=== PATIENT | female | born 1935 | race Caucasian/White ===

== ENCOUNTER 2022-03-30 12:10 | Inpatient (IN) | payer MEDICARE, OTHER, SELFPAY ==
[2022-03-30] VITALS (8 sets, daily range): BP systolic 120–149; BP diastolic 66–89; PULSE 77–155; RESP 17–22; TEMP 36.3–36.6; O2SAT 93–98; BMI 24.0
--- NOTE | ~2022-03-30 | CT_ITS ---
EXAMINATION: CT CHEST WITHOUT CONTRAST CLINICAL INFORMATION: Shortness of breath. Follow-up abnormal chest x-ray. COMPARISON: Previous chest x-ray from earlier the same day TECHNIQUE: Multidetector volumetric CT imaging of the chest was done. Axial MIP volume rendering provided. Sagittal and coronal reformatted images were obtained. This CT examination was performed using dose optimization techniques as appropriate, variously including the following: *Automated exposure control *Adjustment of mA and/or kV according to patient size (this includes techniques or standardized protocols for targeted exams where dose is matched to indication/reason for exam; i.e. extremities or head) *Use of iterative reconstruction technique DLP: 178 mGy-cm FINDINGS: LUNGS: There is a 3 mm peripheral or subpleural left upper lobe nodule axial image 102 series 5. There is an accessory fissure the superior segment of the right lower lobe from basal segments. There are several clustered nodules in the superior segment of the right lower lobe largest measuring 6 mm and 10 mm axial image 219 and 228 series 5. There is atelectasis or small infiltrate filled trachea in the anterior basal segment of the left lower lobe. There is subsegmental atelectasis in the right lower lobe adjacent to the effusion. There is mild biapical pleural and parenchymal scarring. No evidence of emphysema. MEDIASTINUM: Slightly enlarged heart. No pericardial effusion. Mild coronary artery and aortic valve calcification. Small mediastinal lymph nodes. No enlarged hilar or mediastinal lymph nodes. Small calcifications in the right lobe of the thyroid gland. CORONARY ARTERY CALCIFICATION: Mild PLEURA: Large right pleural effusion and small left pleural effusion. AXILLA: Small bilateral axillary lymph nodes. No chest wall mass or enlarged axillary lymph nodes. UPPER ABDOMEN: Unremarkable. OSSEOUS STRUCTURES: Degenerative changes of the spine. CT/CT chest wo IV con IMPRESSION: Accessory right pleural fissure the superior segment of the right lower lobe from the basal segments. Several clustered superior segment right lower lobe nodules largest measuring 7 and 10 mm. Atelectasis or small infiltrate in the anterior basal segment of the left lower lobe. Infectious or inflammatory processes should be considered. Short-term follow-up chest CT in several months following antibiotic treatment recommended. Subsegmental atelectasis in the right lower lobe adjacent to the pleural effusion. Large right and small left pleural effusions. Enlarged heart. Fleischner guidelines were followed.
--- NOTE | ~2022-03-30 | XR_ITS ---
EXAMINATION: XR CHEST CLINICAL INFORMATION: Shortness of breath COMPARISON: None TECHNIQUE: Frontal view of the chest was obtained. FINDINGS: Small bibasilar pleural effusions noted. Minor atelectasis at the left base. I would recommend a follow-up PA lateral. There is a very minor streaky infiltrate in the right perihilar lung as well. Heart and pulmonary vessels normal. XR/XR chest 1V IMPRESSION: Bilateral infiltrates and small effusions. This could reflect pneumonia. Recommend follow-up when clinically feasible a PA and lateral film.
--- NOTE | 2022-03-30 12:40 | ECG_ITS ---
Test Reason : DYSPNEA Blood Pressure : / mmHG Vent. Rate : 148 BPM Atrial Rate : 000 BPM P-R Int : 000 ms QRS Dur : 078 ms QT Int : 322 ms P-R-T Axes : 000 074 060 degrees QTc Int : 505 ms Atrial fibrillation with rapid ventricular response Nonspecific T wave abnormality Abnormal ECG No previous ECGs available Referred By: Alysa Giron Electronically Signed By:HOLDEN ORTEGA MD
[2022-03-30 13:52] LABS: MANUAL DIFF FLAG NO
[2022-03-30 13:57] LABS: Basophils Absolute Auto 0.1 X10*3/uL (0.0-0.2); Basophils Percent Auto 0.9 % (0-2); Eosinophils Absolute Auto 0.1 X10*3/uL (0.0-0.4); Eosinophils Percent Auto 1.9 % (0-4); Hematocrit 43.8 % (37.0-47.0); Hemoglobin 14.4 g/dl (12.0-16.0); Imm Gran Abs Auto 0.02 X10*3/uL (0.00-0.03); Imm Gran Pct Auto 0.3 % (0.0-0.4); Lymphocytes Absolute Auto 1.3 X10*3/uL (1.2-4.9); Lymphocytes Percent Auto 18.8 % (20-40); Mean Corpuscular HGB Conc 32.9 g/dl (31.0-35.0); Mean Corpuscular Hemoglobin 29.1 pg (27.0-33.0); Mean Corpuscular Volume 88.7 fL (80.0-98.0); Mean Platelet Volume 9.2 fL (9.4-12.3); Monocytes Absolute Auto 0.6 X10*3/uL (0.1-1.2); Monocytes Percent Auto 8.8 % (2-11); Neutrophils Absolute Auto 4.8 x10*3/uL (2.0-8.3); Neutrophils Percent Auto 69.3 % (45-73); Platelet Count 294 X10*3/uL (160-400); Red Blood Count 4.94 X10*6/uL (4.20-5.50); Red Cell Distribution Width 13.2 % (11.0-16.0); White Blood Count 6.9 X10*3/uL (4.8-10.8)
[2022-03-30] MEDS: dilTIAZem HCL 50 MG/10 ML VIAL 20 MG IVPUSH (13:58)
--- NOTE | 2022-03-30 14:02 | ED_ITS ---
HPI - General Adult General Chief complaint: Dyspnea Stated complaint: SOB Time Seen by Provider: 03/30/22 13:30 Source: patient and family (Sister) Mode of arrival: ambulatory Limitations: no limitations History of Present Illness HPI narrative: 86-year-old female came in for evaluation of generalized weakness and shortness of breath. Patient lives home with her mostly independently and functional for the past 2 weeks patient notice having difficulty breathing and exertional dyspnea, patient also started to notice that she cannot lay flat on her back and nighttime because she developed SOB, symptoms started 2 weeks ago started with lower abdominal pain ascending up to the epigastric area that lasted for 1 day now patient has no abdominal pain or chest pain. Patient declined any history of atrial fibrillation. Patient stated that she was at her normal health state until 2 weeks ago when her broke her hip and she has to take care of him. Related Data Home Medications Medication Instructions Recorded Confirmed amitriptyline 10 mg tablet 1 tab PO BEDTIME 03/30/22 03/30/22 escitalopram oxalate 10 mg tablet 1 tab PO BEDTIME 03/30/22 03/30/22 rizatriptan 10 mg tablet 1 tab PO DAILY MRX1 PRN Migraine 03/30/22 03/30/22 Headache topiramate 25 mg tablet 4 tab PO BEDTIME 03/30/22 03/30/22 Allergies Allergy/AdvReac Type Severity Reaction Status Date / Time No Known Allergies Allergy Verified 03/30/22 13:37 Review of Systems 2 Review of Systems: All other systems are reviewed and are negative Constitutional: Reports as per HPI and Reports no additional constitutional complaints Eyes: Reports as per HPI and Reports no additional eye complaints Reports system reviewed and no additional complaints, except as documented Cardiovascular: Reports as per HPI and Reports no additional cardiovascular complaints Respiratory: Reports as per HPI and Reports no additional respiratory complaints Gastrointestinal: Reports as per HPI and Reports no additional gastrointestinal complaints Genitourinary: Reports no additional female genitourinary complaints Musculoskeletal: Reports no additional musculoskeletal complaints Skin/Breast: Reports system reviewed and no additional complaints, except as docu Psychiatric: Reports no additional psychiatric complaints Endocrine: Reports no additional endocrine complaints Hematologic/Lymphatic: Reports no additional hematologic/lymphatic complaints Allergic/Immunologic: Reports no additional allergic/immunologic complaints Reports system reviewed and no additional complaints, except as documented and Reports Abnormal speech present. [facility] Social History Social History Patient Tobacco Use Status: Never used Tobacco Use of substances other than those prescribed or required for medical reasons: No Advance Directives: Yes Advance Directives Information Provided: No Advance Directives on File: No Physical Exam ED Vital Signs: Vital Signs - 24 hr 03/30/22 12:34 03/30/22 14:09 03/30/22 14:31 Temperature 97.8 F Pulse Rate 155 H 83 77 Respiratory Rate 22 H 18 18 Blood Pressure 132/89 120/66 130/81 Pulse Oximetry 97 Oxygen Delivery Method Room Air 03/30/22 14:43 03/30/22 16:39 Temperature Pulse Rate 79 95 Respiratory Rate 18 18 Blood Pressure 145/76 H 132/73 Pulse Oximetry 95 98 Oxygen Delivery Method Room Air Room Air BMI result Body Mass Index 24.0 Vital signs have been reviewed as appeared to be correct. Blood pressure normal. Heart rate rapid. Respiration rate normal. Temperature normal. Oxygen saturation normal. Appearance: Alert. Oriented X3. No acute distress. Head: Normal external exam. Normocephalic. Atraumatic. No Gaytan signs noted. No raccoon eyes noted Eyes: PERRLA. EOMI. Conjunctiva and sclera normal. Eyelids normal. ENT: TM's Normal. Pharynx normal. Uvula midline. Moist mucous membranes. No trismus noted. No drooling noted. No muffled voice noted. Neck: Normal inspection. Neck supple. FROM. No adenopathy. Thyroid Normal. No meningeal signs. No neck mass noted. CVS: Normal heart rate and rhythm. Heart sound normal. No murmurs noted. Pulses normal throughout. Respiratory: No respiratory distress. Painless inspiration. Breath sounds normal. No wheezes/rales/rhonchi noted. Chest nontender. No accessory muscle usage noted or decreased air movement noted. Abdomen: Soft and nontender. Bowel sounds normal in all 4 quadrants. No distention noted. No organomegaly noted. No visible injury noted. Back: No CVA tenderness. Full range of motion noted. Skin: Skin warm and dry. Normal skin color. Normal skin turgor. No rashes/lesions/lacerations noted. Extremities: No lower extremity edema. Extremities exhibit normal range of motion. Extremities nontender. Neuro: Oriented X 3. Cranial nerve exam: II-XII are grossly intact No motor deficit. No sensory deficit. Reflexes normal. Course Course Course Narrative: 86-year-old female came in for generalized weakness and SOB patient found to be an new rapid atrial fibrillation that has been controlled with Cardizem drip. Patient will require anticoagulation will start the patient on Eliquis 5 mg p.o. and admit. Medical Decision Making Medical Records Medical records reviewed: Yes I reviewed the patient's medical records. Lab Data Lab results reviewed: Yes I reviewed the patient's lab results. Result diagrams: 03/30/22 13:49 03/30/22 13:49 Labs: Lab Results 03/30/22 03/30/22 03/30/22 Range/Units 13:49 13:49 13:49 WBC 6.9 (4.8-10.8) X10*3/uL RBC 4.94 (4.20-5.50) X10*6/uL Hgb 14.4 (12.0-16.0) g/dl Hct 43.8 (37.0-47.0) % MCV 88.7 (80.0-98.0) fL MCH 29.1 (27.0-33.0) pg MCHC 32.9 (31.0-35.0) g/dl RDW 13.2 (11.0-16.0) % Plt Count 294 (160-400) X10*3/uL MPV 9.2 L (9.4-12.3) fL Immature Gran % (Auto) 0.3 (0.0-0.4) % Neut % (Auto) 69.3 (45-73) % Lymph % (Auto) 18.8 L (20-40) % [place] % (Auto) 8.8 (2-11) % Eos % (Auto) 1.9 (0-4) % Baso % (Auto) 0.9 (0-2) % Lymph # (Auto) 1.3 (1.2-4.9) X10*3/uL [place] # (Auto) 0.6 (0.1-1.2) X10*3/uL Eos # (Auto) 0.1 (0.0-0.4) X10*3/uL Baso # (Auto) 0.1 (0.0-0.2) X10*3/uL Abs Immat Gran (auto) 0.02 (0.00-0.03) X10*3/uL Absolute Neuts (auto) 4.8 (2.0-8.3) x10*3/uL Absolute Nucleated RBC 0.000 (0.0-0.012) X10*3/uL Nucleated RBC % (auto) 0.0 (0.0-0.2) /100WBC PT (10.0-13.1) SEC INR (0.9-1.1) Sodium 140 (135-145) mmol/L Potassium 4.9 (3.3-5.1) mmol/L Chloride 108 (96-108) mmol/L Carbon Dioxide 19 L (22-29) mmol/L Anion Gap 18 (12-20) BUN 15 (9-16) mg/dL Creatinine 1.18 (0.5-1.4) mg/dL Estim Creat Clear Calc 33.2 Estimated GFR 44 Random Glucose 94 (60-115) mg/dL Lactic Acid (0.5-2.0) mmol/L Calcium 9.7 (8.4-10.2) mg/dL Magnesium 2.2 (1.6-2.6) mg/dL Troponin I High Sens 27.3 H (<3.5-17.0) ng/L B-Natriuretic Peptide 217 H (<100) pg/mL Procalcitonin ng/mL COVID-19 (IBAN) (Negative) COVID-19 Clin Com 03/30/22 03/30/22 03/30/22 Range/Units 13:49 13:49 13:49 WBC (4.8-10.8) X10*3/uL RBC (4.20-5.50) X10*6/uL Hgb (12.0-16.0) g/dl Hct (37.0-47.0) % MCV (80.0-98.0) fL MCH (27.0-33.0) pg MCHC (31.0-35.0) g/dl RDW (11.0-16.0) % Plt Count (160-400) X10*3/uL MPV (9.4-12.3) fL Immature Gran % (Auto) (0.0-0.4) % Neut % (Auto) (45-73) % Lymph % (Auto) (20-40) % [place] % (Auto) (2-11) % Eos % (Auto) (0-4) % Baso % (Auto) (0-2) % Lymph # (Auto) (1.2-4.9) X10*3/uL [place] # (Auto) (0.1-1.2) X10*3/uL Eos # (Auto) (0.0-0.4) X10*3/uL Baso # (Auto) (0.0-0.2) X10*3/uL Abs Immat Gran (auto) (0.00-0.03) X10*3/uL Absolute Neuts (auto) (2.0-8.3) x10*3/uL Absolute Nucleated RBC (0.0-0.012) X10*3/uL Nucleated RBC % (auto) (0.0-0.2) /100WBC PT 12.2 (10.0-13.1) SEC INR 1.1 (0.9-1.1) Sodium (135-145) mmol/L Potassium (3.3-5.1) mmol/L Chloride (96-108) mmol/L Carbon Dioxide (22-29) mmol/L Anion Gap (12-20) BUN (9-16) mg/dL Creatinine (0.5-1.4) mg/dL Estim Creat Clear Calc Estimated GFR Random Glucose (60-115) mg/dL Lactic Acid (0.5-2.0) mmol/L Calcium (8.4-10.2) mg/dL Magnesium (1.6-2.6) mg/dL Troponin I High Sens (<3.5-17.0) ng/L B-Natriuretic Peptide (<100) pg/mL Procalcitonin 0.04 ng/mL COVID-19 (IBAN) Negative (Negative) COVID-19 Clin Com See Note 03/30/22 Range/Units 14:27 WBC (4.8-10.8) X10*3/uL RBC (4.20-5.50) X10*6/uL Hgb (12.0-16.0) g/dl Hct (37.0-47.0) % MCV (80.0-98.0) fL MCH (27.0-33.0) pg MCHC (31.0-35.0) g/dl RDW (11.0-16.0) % Plt Count (160-400) X10*3/uL MPV (9.4-12.3) fL Immature Gran % (Auto) (0.0-0.4) % Neut % (Auto) (45-73) % Lymph % (Auto) (20-40) % [place] % (Auto) (2-11) % Eos % (Auto) (0-4) % Baso % (Auto) (0-2) % Lymph # (Auto) (1.2-4.9) X10*3/uL [place] # (Auto) (0.1-1.2) X10*3/uL Eos # (Auto) (0.0-0.4) X10*3/uL Baso # (Auto) (0.0-0.2) X10*3/uL Abs Immat Gran (auto) (0.00-0.03) X10*3/uL Absolute Neuts (auto) (2.0-8.3) x10*3/uL Absolute Nucleated RBC (0.0-0.012) X10*3/uL Nucleated RBC % (auto) (0.0-0.2) /100WBC PT (10.0-13.1) SEC INR (0.9-1.1) Sodium (135-145) mmol/L Potassium (3.3-5.1) mmol/L Chloride (96-108) mmol/L Carbon Dioxide (22-29) mmol/L Anion Gap (12-20) BUN (9-16) mg/dL Creatinine (0.5-1.4) mg/dL Estim Creat Clear Calc Estimated GFR Random Glucose (60-115) mg/dL Lactic Acid 1.1 (0.5-2.0) mmol/L Calcium (8.4-10.2) mg/dL Magnesium (1.6-2.6) mg/dL Troponin I High Sens (<3.5-17.0) ng/L B-Natriuretic Peptide (<100) pg/mL Procalcitonin ng/mL COVID-19 (IBAN) (Negative) COVID-19 Clin Com Imaging Data Chest x-ray: Attestation: I personally reviewed and interpreted this imaging study as follows: Radiologist's impression: Bilateral infiltrates and small effusions. This could reflect pneumonia. Recommend follow-up when clinically feasible a PA and lateral film. ? chest CT: Attestation: I personally reviewed and interpreted this imaging study as follows: Radiologist's impression: Accessory right pleural fissure the superior segment of the right lower lobe from the basal segments. Several clustered superior segment right lower lobe nodules largest measuring 7 and 10 mm. Atelectasis or small infiltrate in the anterior basal segment of the left lower lobe. Infectious or inflammatory processes should be considered. Short-term follow-up chest CT in several months following antibiotic treatment recommended. Subsegmental atelectasis in the right lower lobe adjacent to the pleural effusion. Large right and small left pleural effusions. Enlarged heart.? ECG Data Attestation: I personally reviewed and interpreted this ECG as follows: Interpretation: Atrial fibrillation with rapid ventricular response 148, normal axis deviation. No ST-T changes. Critical Care Time Critical Care Time Critical Care Time: Yes Total Critical Care Time: 45 Attestation: I spent 45 minutes providing critical care service to the patient, this including time spent at the bedside to evaluate the patient, reassess the patient, monitoring vital signs, review labs, and radiographic studies, counseling the patient/family, discussing the case with consultants, disposition the patient. Discharge Plan Discharge Clinical Impression: Atrial fibrillation with rapid ventricular response, Community acquired pneumonia, Pulmonary nodule Patient Disposition: Admitted As Inpatient
[2022-03-30] MEDS: dilTIAZem HCL 125 MG in 0.9 % Sodium Chloride 100 ML 10 MG IVCONT (14:05)
[2022-03-30 14:06] LABS: INTERNATIONAL NORM RATIO 1.1 (0.9-1.1); Prothrombin Time 12.2 SEC (10.0-13.1)
--- NOTE | 2022-03-30 14:10 | PC.NURSE ---
gave 20mg of Diltiazem bolus. Patient tolerated it well. heart rate went down to 85. BP 120/66. waiting on instruction from provider to start drip
[2022-03-30 14:11] LABS: COVID-19 Test Negative (Negative); IDNOW Serial# 16C4AD1C
--- NOTE | 2022-03-30 14:14 | ECG_ITS ---
Test Reason : short of breath Blood Pressure : / mmHG Vent. Rate : 114 BPM Atrial Rate : 000 BPM P-R Int : 000 ms QRS Dur : 080 ms QT Int : 380 ms P-R-T Axes : 000 083 085 degrees QTc Int : 523 ms Atrial fibrillation with rapid ventricular response Abnormal ECG When compared with ECG of 30-MAR-2022 13:23, No significant change was found Referred By: Alysa Giron Electronically Signed By:HOLDEN ORTEGA MD
[2022-03-30 14:15] LABS: Anion Gap 18 (12-20); Blood Urea Nitrogen 15 mg/dL (9-16); Calcium 9.7 mg/dL (8.4-10.2); Carbon Dioxide 19 mmol/L (22-29); Chloride 108 mmol/L (96-108); Creatinine Clr Calc Pharmacy 33.2; Estimated Glomerular Filt Rate 44; Glucose Random 94 mg/dL (60-115); Potassium 4.9 mmol/L (3.3-5.1); Sodium 140 mmol/L (135-145)
[2022-03-30 14:21] LABS: B Type Natriuretic Peptide 217 pg/mL (<100); Troponin-I High Sensitivity 27.3 ng/L (<3.5-17.0)
[2022-03-30] MEDS: levoFLOXacin/D5W 750 MG/150 ML PIGGYBACK 100 MG IV (14:35)
[2022-03-30 14:44] LABS: Lactic Acid 1.1 mmol/L (0.5-2.0)
--- NOTE | 2022-03-30 14:54 | PC.NURSE ---
Patient presents to ED with rapid Afib. HR155. sob, cardizem 20 mg given per order pt hr 80-90 b/p WNL. Dr. Sabillon is aware. Cardizem drip started at 5mg/hr. Second IV established and levaquin started. Sat at 95% at room air. She complains of a headache 4/10 and has history of migraines.
--- NOTE | 2022-03-30 15:18 | PHA.MEDREC ---
Pharmacy Consult ? Medication Reconciliation Pharmacy has completed the medication reconciliation.Spoke with patient in the ED. Patient takes all meds at bedtime, except rizatriptan PRN
[2022-03-30] MEDS: Apixaban 5 MG TABLET PO ×2 (15:33→21:47)
[2022-03-30] MEDS: Acetaminophen 325 MG TABLET 650 MG PO (15:34)
[2022-03-30 15:42] LABS: Magnesium 2.2 mg/dL (1.6-2.6)
--- OUTSIDE RECORDS SUMMARY | 2022-03-30 15:46 | XMS_ITS | Continuity of Care Document ---
:1935 Author Organization [facility] Address [address] [place] [id number]- Care Team Providers Name Role Phone Adalberto MURILLO, Eda Primary Care Physician Encounter [facility] Date(s): 09/02/21 - 10/02/21 [facility] [address] [place] [id number] Allergies, Adverse Reactions, Alerts No Known Allergies Immunizations Given and Recorded Vaccine Date Status Refusal Reason influenza virus vaccine, inactivated 07/04/21 Given influenza virus vaccine, inactivated 02/23/20 Recorded influenza virus vaccine, inactivated1 04/10/19 Given SARS-CoV-2 (COVID-19) mRNA-1273 vaccine2 05/19/21 Given SARS-CoV-2 (COVID-19) mRNA-1273 vaccine 09/04/20 Recorded SARS-CoV-2 (COVID-19) mRNA-1273 vaccine 08/07/20 Recorded tetanus/diphtheria/pertussis, acel(Tdap)3 11/08/17 Record ed tetanus/diphtheria/pertussis, acel(Tdap) 09/08/12 Recorde d 1Result Comment: [facility]# [id number] Comment: [facility] [id number] Comment: [facility] amitriptyline 10 mg oral tablet 1 tablet = 10 mg, By Mouth, Daily at bedtime, 0 Refills, Maintenance, 04/27/14 9:25:59 Start Date: 04/27/14 Status: OrderedCaltrate 600 + D See Instructions, 1 tablet By Mouth daily, 0 Refills, Maintenance, 08/03/21 13:51:00 EST, Partial fill upon patient request if the prescription is for a schedule II opioid drug. Start Date: 08/03/21 Status: Orderedescitalopram 10 mg oral tablet 1 tablet = 10 mg, By Mouth, Daily, # 30 tablet, 0 Refills, Maintenance, 04/27/14 9:26:18, Tablet Start Date: 04/27/14 Status: OrderedGlucosamine Chondroitin MSM Complex See Instructions, as directed, 0 Refills, Maintenance, 01/01/19 13:55:11 EDT Start Date: 01/01/19 Status: Orderedmagnesium gluconate 250 mg oral tablet 1 tablet = 250 mg, By Mouth, Daily, # 30 tablet, 0 Refills, Maintenance, 08/03/21 13:53:00 EST, Tablet, Partial fill upon patient request if the prescription is for a schedule II opioid drug. Start Date: 08/03/21 Status: OrderedMultivitamin By Mouth, Daily, 0 Refills, Maintenance, 04/27/14 9:30:23 Start Date: 04/27/14 Status: OrderedRizatriptan = 10 mg, By Mouth, PRN as needed for migraine headache, 0 Refills, Maintenance, 07/25/15 8:46:28 EST Start Date: 07/25/15 Status: Orderedtopiramate 25 mg oral tablet 3 tablet = 75 mg, By Mouth, Daily, 0 Refills, Maintenance, 04/27/14 9:25:34 EST Start Date: 04/27/14 Status: Orderedubiquinone 100 mg oral capsule 1 capsule = 100 mg, By Mouth, Daily, # 30 capsule, 0 Refills, Maintenance, 01/01/19 13:57:34 EDT, Capsule Start Date: 01/01/19 Status: OrderedVitamin B Complex oral tablet, extended release 1 tablet, By Mouth, Daily, 0 Refills, Maintenance, 01/01/19 13:58:17 EDT Start Date: 01/01/19 Status: OrderedVitamin B12 See Instructions, 0 Refills, Maintenance, 01/01/19 13:59:01 EDT Start Date: 01/01/19 Status: OrderedVitamin C 500 mg oral tablet 1 tablet = 500 mg, By Mouth, Daily, # 30 tablet, 0 Refills, Maintenance, 01/01/19 14:00:01 EDT, Tablet Start Date: 01/01/19 Status: OrderedVitamin D3 2000 intl units oral tablet 1 tablet = 2,000 International_Units, By Mouth, Daily, 0 Refills, Maintenance, 01/01/19 14:00:24 EDT Start Date: 01/01/19 Status: Ordered Problem List Condition Effective Dates Status Health Status Informant Atrophic vaginitis(Confirmed) Active Basal cell carcinoma of Active skin(Confirmed) Bleeding from nose(Confirmed) Active Blood coagulation disorder(Confirmed) Active Carotid bruit(Confirmed) Active Carpal tunnel syndrome, Active bilateral(Confirmed)1 Collagenous colitis(Confirmed) Active Cramp in limb(Confirmed) Active Diarrhea(Confirmed) Active Elevated blood-pressure reading Active without diagnosis of hypertension(Confirmed) Enthesopathy of elbow Active region(Confirmed) Finding of pulsation of Active abdomen(Confirmed) H/O cyst of breast(Confirmed) Active H/O: depression(Confirmed) Active H/O hypercalcemia(Confirmed) Active History of recurrent Active miscarriages(Confirmed)2 Hand joint pain(Confirmed) Active Heart murmur(Confirmed) Active H/O herpes zoster(Confirmed) Active History of palpitations(Confirmed) Active History of colon polyps(Confirmed) Active Hyperlipidemia(Confirmed) Active Internal hemorrhoids(Confirmed) Active Intolerant of cold(Confirmed) Active Lactase deficiency(Confirmed) Active Migraine(Confirmed) Active Multiple actinic keratoses(Confirmed) Active Nocturia(Confirmed) Active Nodular goiter(Confirmed) Active Osteoporosis(Confirmed) Active Renal mass(Confirmed) Active Thyroid nodule(Confirmed) Active Tinea pedis(Confirmed) Active Urge incontinence of urine(Confirmed) Active 1mild - on EMG - Dr. [id number] Social History Social History Type Response Smoking Status Former smoker entered on: 04/27/14 Sex
--- OUTSIDE RECORDS SUMMARY | 2022-03-30 15:47 | XMS_ITS | Continuity of Care Document ---
:1935 Author Organization [facility] Address [address] [place] [phone]- Care Team Providers Name Role Phone Adalberto MURILLO, Eda Primary Care Physician Encounter [facility] Date(s): 07/30/21 - 08/29/21 [facility] [address] [place] [id number] All[facility]ies, Adverse Reactions, Alerts No Known Allergies [...] tetanus/diphtheria/pertussis, acel(Tdap) 09/08/12 Recorde d 1Result Comment: [facility]# [id number] Comment: [facility] [phone] Comment: [facility] amitriptyline 10 mg [...] Active 1mild - on EMG - Dr. NunezIwspqywygu0rwj Social History Social History Type Response Smoking Status Former smoker entered on: 04/27/14 Sex
--- OUTSIDE RECORDS SUMMARY | 2022-03-30 15:47 | XMS_ITS | Continuity of Care Document ---
:1935 Author Organization [facility] Address [address] [place] [id number]- Care Team Providers Name Role Phone Eda Glover MD Primary Care Physician Encounter [facility] Date(s): 06/22/19 - 06/22/[address] [phone]- [facility] Attending Physician: Eda Glover MD Allergies, Adverse Reactions, Alerts Substance Reaction Severity Status riboflavin Rectal pain Active Other Adhesive Bandage rash at site Active Immunizations Given and Recorded Vaccine Date Status Refusal Reason influenza virus vaccine, inactivated1 04/10/19 Given tetanus/diphtheria/pertussis, acel(Tdap)2 11/08/17 Record ed tetanus/diphtheria/pertussis, acel(Tdap) 09/08/12 Recorde d 1Result Comment: [facility]# [id number] Comment: [facility] amitriptyline 10 mg oral tablet 1 tablet = 10 mg, By Mouth, Daily at bedtime, 0 Refills, Maintenance, 04/27/14 9:25:59 Start Date: 04/27/14 Status: Orderedescitalopram 10 mg oral tablet 1 tablet = 10 mg, By Mouth, Daily, # 30 tablet, 0 Refills, Maintenance, 04/27/14 9:26:18, Tablet Start Date: 04/27/14 Status: OrderedGlucosamine Chondroitin MSM Complex See Instructions, as directed, 0 Refills, Maintenance, 01/01/19 13:55:11 EDT Start Date: 01/01/19 Status: OrderedMultivitamin By Mouth, Daily, 0 Refills, Maintenance, 04/27/14 9:30:23 Start Date: 04/27/14 Status: OrderedRizatriptan = 10 mg, By Mouth, PRN as needed for migraine headache, 0 Refills, Maintenance, 07/25/15 8:46:28 EST Start Date: 07/25/15 Status: Orderedtopiramate 25 mg oral tablet 4 tablet = 100 mg, By Mouth, Daily, 0 Refills, Maintenance, 04/27/14 9:25:34 Start Date: 04/27/14 Status: Orderedubiquinone 100 mg oral capsule 1 capsule = 100 mg, By Mouth, Daily, # 30 capsule, 0 Refills, Maintenance, 01/01/19 13:57:34 EDT, Capsule Start Date: 01/01/19 Status: OrderedVitamin B Complex oral tablet, extended release 1 tablet, By Mouth, Daily, 0 Refills, Maintenance, 01/01/19 13:58:17 EDT Start Date: 01/01/19 Status: OrderedVitamin B1 = 250 mg, By Mouth, Daily, 0 Refills, Maintenance, 01/01/19 13:59:29 EDT Start Date: 01/01/19 Status: OrderedVitamin B12 [...] Blood coagulation disorder(Confirmed) Active Carotid bruit(Confirmed) Active Cramp in limb(Confirmed) Active Diarrhea(Confirmed) Active Elevated blood-pressure reading Active without diagnosis of hypertension(Confirmed) Enthesopathy of elbow Active region(Confirmed) Finding of pulsation of Active abdomen(Confirmed) H/O cyst of breast(Confirmed) Active H/O: depression(Confirmed) Active H/O hypercalcemia(Confirmed) Active History of recurrent Active miscarriages(Confirmed)1 Hand joint pain(Confirmed) Active Heart murmur(Confirmed) Active H/O herpes zoster(Confirmed) Active History of palpitations(Confirmed) Active History of colon polyps(Confirmed) Active Hyperlipidemia(Confirmed) Active Internal hemorrhoids(Confirmed) Active Intolerant of cold(Confirmed) Active Lactase deficiency(Confirmed) Active Migraine(Confirmed) Active Multiple actinic keratoses(Confirmed) Active Nocturia(Confirmed) Active Nodular goiter(Confirmed) Active Osteoporosis(Confirmed) Active Renal mass(Confirmed) Active Thyroid nodule(Confirmed) Active Tinea pedis(Confirmed) Active Urge incontinence of urine(Confirmed) Active 1two Social History Social History Type Response Smoking Status Former smoker entered on: 04/27/14 Sex
--- OUTSIDE RECORDS SUMMARY | 2022-03-30 15:47 | XMS_ITS | Continuity of Care Document ---
:1935 Author Organization [facility] Address [address] [place] [id number]- Care Team Providers Name Role Phone Adalberto MURILLO, Eda Primary Care Physician [facility] [place]s): 09/02/21 - 10/02/21 [facility] [address] [place] [id number] Attending Physician: Admtr, [id number] Admitting Physician: Admtr, [id number] Referring Physician: Admtr, [id number] Allergies, Adverse Reactions, Alerts No Known Allergies [...] tetanus/diphtheria/pertussis, acel(Tdap) 09/08/12 Recorde d 1Result Comment: [facility]# [id number] Comment: [facility] [id number] Comment: [facility] amitriptyline 10 mg [...] Active 1mild - on EMG - Dr. [id number] Social History Social History Type Response Smoking Status Former smoker entered on: 04/27/14 Sex
[2022-03-30 16:05] LABS: Procalcitonin 0.04 ng/mL
--- NOTE | 2022-03-30 17:07 | PM.IMHP ---
History of Present Illness Date of Service: 03/30/22 Attending physician on admission: Juan Pablo Peter Chief Complaint: sob, afib 86-year-old past medical history of migraine-came to hospital because of palpitation, generalized weakness and shortness of breath.? Patient lives home with her mostly independently and functional for the past 2 weeks patient notice having difficulty breathing and exertional dyspnea, patient also started to notice that she cannot lay flat on her back and nighttime because she developed SOB, symptoms started 2 weeks also had some abdominal discomfort but currently patient has no abdominal pain or chest pain.? Patient declined any history of atrial fibrillation. Patient stated that she was at her normal health state until 2 weeks ago when her broke her hip and she has to take care of him. Denies any new complaint of or fever or chills or nausea or vomitingor cough or weakness or numbness. Patient labs reviewed: CBC seems fine BUN 15 creatinine 1.18 Troponin 27.3, 2nd troponin ordered. BNP 217, procalcitonin 0.04 ,lactic acid normal CT chest pending In ED patient was started on Cardizem drip also given Levaquin does for question of possible pneumonia: In addition patient was given 1 dose of Lasix also. Review of Systems Review of Systems: As above. [facility] Medical History (Updated 03/30/22 @ 17:15 by Juan Pablo Peter MD) History of migraine Pertinent family history: Mother had diabetes Social History (Updated 03/30/22 @ 17:13 by Juan Pablo Peter MD) Alcohol intake: never Patient Tobacco Use Status: Never used Tobacco Use of substances other than those prescribed or required for medical reasons: No Advance Directives: Yes Advance Directives Information Provided: No Advance Directives on File: No Meds Allergies Allergy/AdvReac Type Severity Reaction Status Date / Time No Known Allergies Allergy Verified 03/30/22 13:37 Active Medications: Current Medications Amitriptyline HCl (Amitriptyline Hcl 10 Mg Tablet) 10 mg PO BEDTIME DEYSI Escitalopram Oxalate (Escitalopram Oxalate 10 Mg Tablet) 10 mg PO BEDTIME DEYSI Furosemide (Furosemide 20 Mg/2 Ml Vial) 20 mg IVPUSH ONCE ONE; Protocol Stop: 03/30/22 17:04 Diltiazem HCl 125 mg/ Sodium (Chloride) 125 mls @ 0 mls/hr IVCONT .Q0M DEYSI; Protocol Last Titration: 03/30/22 14:20 Dose: 5 mg/hr, 5 mls/hr Non-Formulary Medication (Rizatriptan) 1 tab PO DAILY MRX1 PRN PRN Reason: Migraine Headache Pharmacy Consult (Consult Rx Perform Med Rec) 1 each MISCELLANE ONCE PRN PRN Reason: Consult order Sodium Chloride (0.9 % Sodium Chloride Flush 3 Ml Syringe) 3 ml IVFLUSH QSHIFT DEYSI Topiramate (Topiramate 25 Mg Tablet) 100 mg PO BEDTIME DEYSI Home Medications Medication Instructions Recorded Confirmed Last Taken Type amitriptyline 10 mg tablet 1 tab PO BEDTIME 03/30/22 03/30/22 03/29/22 History escitalopram oxalate 10 mg tablet 1 tab PO BEDTIME 03/30/22 03/30/22 03/29/22 History rizatriptan 10 mg tablet 1 tab PO DAILY MRX1 PRN Migraine 03/30/22 03/30/22 Unknown History Headache topiramate 25 mg tablet 4 tab PO BEDTIME 03/30/22 03/30/22 03/29/22 History Physical Exam Vital Signs and Narrative: Vital Signs: Last Vital Signs Temp 97.8 F 03/30/22 12:34 Pulse 95 03/30/22 16:39 Resp 18 03/30/22 16:39 BP 132/73 03/30/22 16:39 Pulse Ox 98 03/30/22 16:39 O2 Del Method 03/30/22 16:39 BMI result Body Mass Index 24.0 Appearance: Alert.? Oriented X3.?sob improving Eyes: Pupils equal, round and reactive to light.? Sclera nonicteric.? ENT: Pharynx normal.? Moist mucous membranes. cvs: irregular rythem, [id number] . res: dimished breath sounds, few rhonchii scattered abd: no rebound or guarding ,nt, bs present. ext pulses present , no cyanosis. neuro: axo3 , nonfocal. Results Labs CBC and Chem 7: 03/30/22 13:49 03/30/22 13:49 Labs: Laboratory Results - last 24 hr 03/30/22 03/30/22 03/30/22 13:49 13:49 13:49 MCV 88.7 MCH 29.1 MCHC 32.9 RDW 13.2 Plt Count 294 MPV 9.2 L Immature Gran % (Auto) 0.3 Neut % (Auto) 69.3 Lymph % (Auto) 18.8 L Nuckolls % (Auto) 8.8 Eos % (Auto) 1.9 Baso % (Auto) 0.9 Lymph # (Auto) 1.3 Nuckolls # (Auto) 0.6 Eos # (Auto) 0.1 Baso # (Auto) 0.1 Abs Immat Gran (auto) 0.02 Absolute Neuts (auto) 4.8 Absolute Nucleated RBC 0.000 Nucleated RBC % (auto) 0.0 PT INR Anion Gap 18 Estim Creat Clear Calc 33.2 Estimated GFR 44 Random Glucose 94 Lactic Acid Calcium 9.7 Magnesium 2.2 Troponin I High Sens 27.3 H B-Natriuretic Peptide 217 H Procalcitonin COVID-19 (IBAN) COVID-19 Clin Com 03/30/22 03/30/22 03/30/22 13:49 13:49 13:49 MCV MCH MCHC RDW Plt Count MPV Immature Gran % (Auto) Neut % (Auto) Lymph % (Auto) Nuckolls % (Auto) Eos % (Auto) Baso % (Auto) Lymph # (Auto) Nuckolls # (Auto) Eos # (Auto) Baso # (Auto) Abs Immat Gran (auto) Absolute Neuts (auto) Absolute Nucleated RBC Nucleated RBC % (auto) PT 12.2 INR 1.1 Anion Gap Estim Creat Clear Calc Estimated GFR Random Glucose Lactic Acid Calcium Magnesium Troponin I High Sens B-Natriuretic Peptide Procalcitonin 0.04 COVID-19 (IBAN) Negative COVID-19 Clin Com See Note 03/30/22 14:27 MCV MCH MCHC RDW Plt Count MPV Immature Gran % (Auto) Neut % (Auto) Lymph % (Auto) Nuckolls % (Auto) Eos % (Auto) Baso % (Auto) Lymph # (Auto) Nuckolls # (Auto) Eos # (Auto) Baso # (Auto) Abs Immat Gran (auto) Absolute Neuts (auto) Absolute Nucleated RBC Nucleated RBC % (auto) PT INR Anion Gap Estim Creat Clear Calc Estimated GFR Random Glucose Lactic Acid 1.1 Calcium Magnesium Troponin I High Sens B-Natriuretic Peptide Procalcitonin COVID-19 (IBAN) COVID-19 Clin Com ECG Attestation: I personally reviewed and interpreted this ECG as follows: (afib with rvr , qtc 505 ms) Imaging Radiologist's Impressions: Impressions Chest X-Ray 03/30/22 13:03 IMPRESSION: Bilateral infiltrates and small effusions. This could reflect pneumonia. Recommend follow-up when clinically feasible a PA and lateral film. Chest CT 03/30/22 16:25 IMPRESSION: Accessory right pleural fissure the superior segment of the right lower lobe from the basal segments. Several clustered superior segment right lower lobe nodules largest measuring 7 and 10 mm. Atelectasis or small infiltrate in the anterior basal segment of the left lower lobe. Infectious or inflammatory processes should be considered. Short-term follow-up chest CT in several months following antibiotic treatment recommended. Subsegmental atelectasis in the right lower lobe adjacent to the pleural effusion. Large right and small left pleural effusions. Enlarged heart. Fleischner guidelines were followed. Assessment and Plan (1) Atrial fibrillation with rapid ventricular response: Status: Acute (2) Community acquired pneumonia: Status: Acute (3) Pulmonary nodule: Status: Acute (4) Dyspnea: Status: Acute Plan 86-year-old past medical history of migraine-came to hospital because of palpitation, generalized weakness and shortness of breath. 1. NEW ONSET AFIB WITH RVR: Heart rate is improving with Cardizem drip, her chads Vasc score is at least 3. Patient was also given Eliquis in ED Troponin added, she also received Lasix dose in the ED. echo Cardio evaluation 2. Dyspnea: Could be multifactorial CHF etiology unclear versus pneumonia. Please see HPI: Patient having short of breath with lying down flat also palpitations, elevated BNP Procalcitonin level is low No cough or phlegm or fever ? Will checks chest CT to evaluate pneumonia versus CHF Currently continue antibiotic, patient is tachycardia secondary to AFib, no sepsis Further management as per Cardiology. 4.mild prolong qtc -electrolytes seems fine . psych eval for -medication adjustment. 5. Anxiety: Continue home medications DVT prophylaxis: Given Eliquis in ED. In patient need: AFib with RVR need IV Cardizem, also cardiac workup for dyspnea, patient may benefit from2 midnight stays, patient management discussed with patient in detail and she understand and in agreement with the above plan, patient is DNR DNI. Total time spent 70 minute. Quality Stroke Does the patient have a stroke diagnosis?: No VTE Prior VTE?: No VTE Risk Level:: Medical - moderate - high VTE Device Contraindication: N/A - Device Ordered VTE Drug Contraindication: N/A - Med Ordered
[2022-03-30 17:40] LABS: Troponin-I High Sensitivity 26.2 ng/L (<3.5-17.0)
[2022-03-30 17:52] LABS: Thyroid Stimulating Hormone 1.46 uIU/mL (0.32-4.0)
[2022-03-30] MEDS: Furosemide 20 MG/2 ML VIAL IVPUSH (17:56)
[2022-03-30] MEDS: cefTRIAXone sodium 1 GM in 0.9 % Sodium Chloride 50 ML IV (17:56)
--- NOTE | 2022-03-30 18:16 | PC.NURSE ---
Pt continues on Cardizem gtt at 5mg/hr. HR 90-105, up to 130 with ambulation to bathroom with decrease to 90s with rest. Intermittently reports inability to catch a breath but work of breathing WNL. States no change s/p Tyelnol given for Migraine, Rizatriptan taken for migraines non formulary, Dr Peter to add Fiorcet.
[2022-03-30 18:20] LABS: Troponin-I High Sensitivity 21.3 ng/L (<3.5-17.0)
[2022-03-30] MEDS: Butalb/Acetamin/Caff 50/325/40 TABLET 1 TAB PO (20:28)
--- NOTE | 2022-03-30 20:49 | PC.NURSE ---
Nurse to nurse report given to [place] [facility] [place] Patient to be transferred to room 467.
[2022-03-30] MEDS: Escitalopram Oxalate 10 MG TABLET PO (21:44)
[2022-03-30] MEDS: Topiramate 100 MG TABLET PO (21:44)
[2022-03-30] MEDS: Amitriptyline HCl 10 MG TABLET PO (21:45)
[2022-03-31] MEDS: 0.9 % Sodium Chloride Flush 3 ML SYRINGE IVFLUSH ×4 (01:15→22:11)
[2022-03-31 03:29] VITALS: BP 122/83; PULSE 92; RESP 18; TEMP 36.4; O2SAT 94
[2022-03-31 06:32] LABS: Hematocrit 40.4 % (37.0-47.0); Hemoglobin 13.5 g/dl (12.0-16.0); Mean Corpuscular HGB Conc 33.4 g/dl (31.0-35.0); Mean Corpuscular Volume 86.7 fL (80.0-98.0); Mean Platelet Volume 9.2 fL (9.4-12.3); Platelet Count 261 X10*3/uL (160-400); Red Blood Count 4.66 X10*6/uL (4.20-5.50); Red Cell Distribution Width 13.1 % (11.0-16.0); White Blood Count 6.3 X10*3/uL (4.8-10.8)
--- NOTE | 2022-03-31 07:00 | CA_ITS ---
Transthoracic Echocardiogram Patient (Last, First, Middle): Nay Mark Julie Gender: Female Date of : 1935 Age: 86 Procedure Date: 03/31/2022 Procedure Type: Transthoracic Echocardiogram Location: [facility] [place] Height: 167.64 cm Weight: 67.59 kg BSA: 1.76 m2 Heart Rate: bpm BP: 122 / 83 mmHg [employer] Floor[employer] Specialist: SB Referring MD: Juan Pablo Peter MD Symptoms: afib Study Quality: Adequate ECG Rhythm: Afib w RVR Conclusions: - The left ventricular systolic function is normal. The visually estimated ejection fraction is between 55-60%. - The left atrium is moderately dilated. - There is mild calcification of the aortic valve. - There is mild mitral valve regurgitation. - There is mild tricuspid valve regurgitation. Findings Left Ventricle Normal left ventricular cavity size. There is normal left ventricular wall thickness. The left ventricular systolic function is normal. The visually estimated ejection fraction is between 55-60%. There is no evidence of regional wall motion abnormalities. Diastolic function is indeterminate on the basis of available data. There is moderate septal and moderate basal asymmetric hypertrophy. Right Ventricle Normal right ventricular cavity size. There is low normal right ventricular systolic function. Atria The left atrium is moderately dilated. The right atrium is normal in size. Aortic Valve There is a normal trileaflet aortic valve. There is mild calcification of the aortic valve. There is no aortic valve stenosis. There is mild aortic valve regurgitation. Mitral Valve There is mild mitral annular calcification. There is mild mitral valve regurgitation. There is no mitral valve stenosis. Pulmonic Valve The pulmonic valve is likely normal. Tricuspid Valve Normal tricuspid valve structure. There is mild tricuspid valve regurgitation. There is no evidence of pulmonary hypertension. Great Vessels The asc aorta is normal in size. Venous The inferior vena cava is normal in size and collapses greater than 50% with inspiration. Pericardium/Pleural There is no evidence of pericardial effusion. There is a large left sided pleural effusion. Prior Study Comparison No prior study available for comparison. Measurements 2D Linear Measurements IVSd: 0.74 0.6-0.9/0.6-1.0 cm LVIDd: 5.47 3.9-5.3/4.2-5.9 cm LVIDd Index: 3.11 2.4-3.2/2.2-3.1 cm/m2 LVIDs: 3.70 2.0-3.6 cm LVPWd: 0.97 0.7-1.1 cm LA Diam: 4.40 2.7-3.8/3.0-4.0 cm LAIDs Index: 2.50 1.5-2.3 cm/m2 LV Mass: 215.06 67-162/88-224 g LV Mass Index: 122.19 43-95/49-115 g/m2 LVOT Diam: 2.10 3.0+(-)1.3 cm 2D Systolic Function EF 4C: 56.70 >55% EF 2C: 55.40 >55% EF BiP: 54.80 >55% Mitral Valve MV Pk E: 1.14 Aortic Valve AoV Pk Eduard: 2.07 AoV Mn Eduard: 1.45 AoV VTI: 0.31 AoV Pk Grad: 17.00 Aov Mn Grad: 10.00 MAGALIE Cont.VTI: 2.35 LVOT LVOT Pk Eduard: 1.25 LVOT Mn Eduard: 0.88 LVOT VTI: 0.21 LVOT Pk Grad: 6.00 LVOT Mn Grad: 4.00 LVOT Diam: 2.10 LVOT Area: 3.46 Diastolic Function MV Pk E: 1.14 Right Ventricle TAPSE (mm): 16.60 TVS' Eduard: 11.40 Tricuspid Valve TR Pk Eduard: 2.72 TR Pk Grad: 30.00 RA Press: 3.00 RVSP: 33.00 Great Vessels Aorta Sinus of Valsalva: 3.20 2.0-3.5 cm Ao Asc: 3.30 2.1-3.4 cm Pulmonary Valve PV Pk Eduard: 1.03 Peak PV Grad: 4.00 Updated in Other Vendor System with Status of Final Tevin Newman MD electronically signed on 03/31/2022 11:41:40 AM with status of Final
[2022-03-31 07:08] LABS: Anion Gap 15 (12-20); Blood Urea Nitrogen 14 mg/dL (9-16); Calcium 9.2 mg/dL (8.4-10.2); Carbon Dioxide 20 mmol/L (22-29); Chloride 110 mmol/L (96-108); Creatinine Clr Calc Pharmacy 37.7; Estimated Glomerular Filt Rate 50; Glucose Random 104 mg/dL (60-115); Potassium 4.2 mmol/L (3.3-5.1); Sodium 141 mmol/L (135-145)
[2022-03-31 07:40] VITALS: BP 144/74; PULSE 74; RESP 18; TEMP 36.7; O2SAT 97
[2022-03-31] MEDS: dilTIAZem HCL 30 MG TABLET PO ×3 (10:02→22:10)
[2022-03-31] MEDS: Digoxin 0.5 MG/2 ML AMPUL 0.25 MG IVPUSH ×3 (10:02→22:11)
[2022-03-31] MEDS: Apixaban 5 MG TABLET PO ×2 (10:02→22:10)
[2022-03-31] MEDS: dilTIAZem HCL 125 MG in 0.9 % Sodium Chloride 100 ML IVCONT (10:02)
--- NOTE | 2022-03-31 10:41 | PM.CNCAR ---
History of Present Illness History of Present Illness Date of Service: 03/31/22 Chief complaint: afib w/ rvr, chf vs pneumonia Narrative: This is a cardiology consultation regarding atrial fibrillation. Patient states she does not have any known cardiac issues. Generally healthy at baseline. She apparently has had a lot of stress in the family recently as at and son had injury/fractures. Also granddaughter has recently visited from [place] and was having lot of seizures. Hence she has been under tremendous mental stress. For the last 2 weeks or so she has not been feeling good. Lot of shortness of breath type symptoms. States that she has just been feeling 'lousy'. No clear palpitations. Then ER evaluation has revealed atrial fibrillation with rapid rate and hence she has been admitted. No clear palpitations. No known cardiac problems the past. Review of Systems Review of Systems: Yes all other systems are reviewed and are negative Constitutional: Constitutional: Reports as per HPI Eyes: Eyes: Reports as per HPI ENT: Reports as per HPI Cardiovascular: Cardiovascular: Reports as per HPI, Denies acrocyanosis, Denies cool extremities, Denies chest pain, Denies leg edema, Denies lightheadedness, Denies palpitations and Reports dyspnea Respiratory: Respiratory: Reports as per HPI, Reports no additional respiratory complaints and Reports dyspnea Gastrointestinal: Gastrointestinal: Reports as per HPI and Reports no additional gastrointestinal complaints Genitourinary: Genitourinary: Reports as per HPI Musculoskeletal: Musculoskeletal: Reports no additional musculoskeletal complaints and Reports as per HPI Integumentary/Breasts: Skin/Breast: Reports system reviewed and no additional complaints, except as docu Neurologic: Reports system reviewed and no additional complaints, except as documented and Reports as per HPI Psychiatric: Psychiatric: Reports no additional psychiatric complaints and Reports as per HPI Endocrine: Endocrine: Reports no additional endocrine complaints, Reports as per HPI and Denies palpitations Hematologic/Lymphatic: Hematologic/Lymphatic: Reports no additional hematologic/lymphatic complaints and Reports as per HPI Allergic/Immunologic: Allergic/Immunologic: Reports no additional allergic/immunologic complaints and Reports as per HPI [facility] Past Medical History Medical History (Updated 03/31/22 @ 10:48 by Tevin Newman MD) History of migraine Family History Family History (Updated 03/31/22 @ 10:44 by Tevin Newman MD) Mother Breast cancer Social History Social History (Updated 03/30/22 @ 17:13 by Juan Pablo Peter MD) Household Members: Spouse Housing: Condominium Do you presently have visiting nurse or other home services: No Alcohol intake: never Patient Tobacco Use Status: Never used Tobacco Advance Directives Date on File: 03/30/22 Meds Allergies Allergy/AdvReac Type Severity Reaction Status Date / Time No Known Allergies Allergy Verified 03/30/22 13:37 Active Medications: Current Medications Acetaminophen (Acetaminophen 325 Mg Tablet) 325 mg PO Q6H PRN PRN Reason: Pain, Mild (Pain Scale 1-3) Amitriptyline HCl (Amitriptyline Hcl 10 Mg Tablet) 10 mg PO BEDTIME DEYSI Last Admin: 03/30/22 21:45 Dose: 10 mg Apixaban (Apixaban 5 Mg Tablet) 5 mg PO Q12H DEYSI Last Admin: 03/31/22 10:02 Dose: 5 mg Digoxin (Digoxin 0.5 Mg/2 Ml Ampul) 0.25 mg IVPUSH Q6H DEYSI Stop: 04/01/22 04:01 Last Admin: 03/31/22 10:02 Dose: 0.25 mg Diltiazem HCl (Diltiazem Hcl 30 Mg Tablet) 30 mg PO QID DEYSI; Protocol Last Admin: 03/31/22 10:02 Dose: 30 mg Escitalopram Oxalate (Escitalopram Oxalate 10 Mg Tablet) 10 mg PO BEDTIME DEYSI Last Admin: 03/30/22 21:44 Dose: 10 mg Diltiazem HCl 125 mg/ Sodium (Chloride) 125 mls @ 0 mls/hr IVCONT .Q0M DEYSI; Protocol Last Admin: 03/31/22 10:02 Dose: 5 mg/hr, 5 mls/hr Ceftriaxone Sodium 1 gm/ (Sodium Chloride) 50 mls @ 100 mls/hr IV Q24H DEYSI Last Infusion: 03/30/22 20:00 Dose: Infused Influenza Virus Vaccine (Flu Vacc [id number](6mos Up)/Pf 0.5 Ml Syringe) 0.5 ml IM .ONCE ONE Stop: 03/31/22 13:01 Non-Formulary Medication (Rizatriptan) 1 tab PO DAILY MRX1 PRN PRN Reason: Migraine Headache Pharmacy Consult (Consult Rx Perform Med Rec) 1 each MISCELLANE ONCE PRN PRN Reason: Consult order Sodium Chloride (0.9 % Sodium Chloride Flush 3 Ml Syringe) 3 ml IVFLUSH QSHIFT [facility] Last Admin: 03/31/22 10:07 Dose: 3 ml Topiramate (Topiramate 100 Mg Tablet) 100 mg PO BEDTIME [facility] Last Admin: 03/30/22 21:44 Dose: 100 mg Home Medications Medication Instructions Recorded Confirmed Last Taken Type amitriptyline 10 mg tablet 1 tab PO BEDTIME 03/30/22 03/30/22 03/29/22 History escitalopram oxalate 10 mg tablet 1 tab PO BEDTIME 03/30/22 03/30/22 03/29/22 History rizatriptan 10 mg tablet 1 tab PO DAILY MRX1 PRN Migraine 03/30/22 03/30/22 Unknown History Headache topiramate 25 mg tablet 4 tab PO BEDTIME 03/30/22 03/30/22 03/29/22 History Physical Exam Vital Signs: Vital Signs: Last Vital Signs Temp 98.0 F 03/31/22 07:40 Pulse 74 03/31/22 07:40 Resp 18 03/31/22 07:40 BP 144/74 H 03/31/22 07:40 Pulse Ox 97 03/31/22 07:40 O2 Del Method 03/31/22 07:40 BMI result Body Mass Index 24.0 Const: General: comfortable and no acute distress Orientation/consciousness: patient oriented x3 HEENT: Other: Unremarkable Head: Yes normal to inspection Neck: Neck: Yes normal visual inspection Chest: Chest palpation & inspection: normal inspection of the chest Resp: Auscultation: clear to auscultation bilaterally Cardio: Palpation: normal PMI Heart sounds: S1 normal heart sound present, S2 normal heart sound present, no gallops, no murmurs and no rubs GI: Palpation (GI): Soft to palpation Back/Spine/Pelvis: Other: unremarkable Skin: General skin exam: no rashes or lesions noted Neuro: General: patient oriented x3 Extrem: General: Yes normal to inspection Psych: Mental Status: mental status grossly normal Objective Labs and Meds Result diagrams: 03/31/22 06:13 03/31/22 06:13 Lab results: Laboratory Results - last 24 hr 03/30/22 03/30/22 03/30/22 13:49 13:49 13:49 WBC 6.9 RBC 4.94 Hgb 14.4 Hct 43.8 MCV 88.7 MCH 29.1 MCHC 32.9 RDW 13.2 Plt Count 294 MPV 9.2 L Immature Gran % (Auto) 0.3 Neut % (Auto) 69.3 Lymph % (Auto) 18.8 L [place] % (Auto) 8.8 Eos % (Auto) 1.9 Baso % (Auto) 0.9 Lymph # (Auto) 1.3 [place] # (Auto) 0.6 Eos # (Auto) 0.1 Baso # (Auto) 0.1 Abs Immat Gran (auto) 0.02 Absolute Neuts (auto) 4.8 Absolute Nucleated RBC 0.000 Nucleated RBC % (auto) 0.0 PT INR Sodium 140 Potassium 4.9 Chloride 108 Carbon Dioxide 19 L Anion Gap 18 BUN 15 Creatinine 1.18 Estim Creat Clear Calc 33.2 Estimated GFR 44 Random Glucose 94 Lactic Acid Calcium 9.7 Magnesium 2.2 Troponin I High Sens 27.3 H B-Natriuretic Peptide 217 H Procalcitonin TSH 1.46 COVID-19 (IBAN) COVID-Boatbound 03/30/22 03/30/22 03/30/22 13:49 13:49 13:49 WBC RBC Hgb Hct MCV MCH MCHC RDW Plt Count MPV Immature Gran % (Auto) Neut % (Auto) Lymph % (Auto) [place] % (Auto) Eos % (Auto) Baso % (Auto) Lymph # (Auto) [place] # (Auto) Eos # (Auto) Baso # (Auto) Abs Immat Gran (auto) Absolute Neuts (auto) Absolute Nucleated RBC Nucleated RBC % (auto) PT 12.2 INR 1.1 Sodium Potassium Chloride Carbon Dioxide Anion Gap BUN Creatinine Estim Creat Clear Calc Estimated GFR Random Glucose Lactic Acid Calcium Magnesium Troponin I High Sens B-Natriuretic Peptide Procalcitonin 0.04 TSH COVID-19 (IBAN) Negative COVID-Boatbound See Note 03/30/22 03/30/22 03/30/22 14:27 16:47 17:40 WBC RBC Hgb Hct MCV MCH MCHC RDW Plt Count MPV Immature Gran % (Auto) Neut % (Auto) Lymph % (Auto) [place] % (Auto) Eos % (Auto) Baso % (Auto) Lymph # (Auto) [place] # (Auto) Eos # (Auto) Baso # (Auto) Abs Immat Gran (auto) Absolute Neuts (auto) Absolute Nucleated RBC Nucleated RBC % (auto) PT INR Sodium Potassium Chloride Carbon Dioxide Anion Gap BUN Creatinine Estim Creat Clear Calc Estimated GFR Random Glucose Lactic Acid 1.1 Calcium Magnesium Troponin I High Sens 26.2 H 21.3 H B-Natriuretic Peptide Procalcitonin TSH COVID-19 (IBAN) COVID-19 Clin Com 03/31/22 03/31/22 06:13 06:13 WBC 6.3 RBC 4.66 Hgb 13.5 Hct 40.4 MCV 86.7 MCH 29.0 MCHC 33.4 RDW 13.1 Plt Count 261 MPV 9.2 L Immature Gran % (Auto) Neut % (Auto) Lymph % (Auto) [place] % (Auto) Eos % (Auto) Baso % (Auto) Lymph # (Auto) [place] # (Auto) Eos # (Auto) Baso # (Auto) Abs Immat Gran (auto) Absolute Neuts (auto) Absolute Nucleated RBC 0.000 Nucleated RBC % (auto) 0.0 PT INR Sodium 141 Potassium 4.2 Chloride 110 H Carbon Dioxide 20 L Anion Gap 15 BUN 14 Creatinine 1.04 Estim Creat Clear Calc 37.7 Estimated GFR 50 Random Glucose 104 Lactic Acid Calcium 9.2 Magnesium Troponin I High Sens B-Natriuretic Peptide Procalcitonin TSH COVID-19 (IBAN) COVID-19 Clin Com ECG Interpretation: EKG with atrial fibrillation with rate of 148/Min. Imaging Radiologist's impression: Impressions Chest X-Ray 03/30/22 13:03 IMPRESSION: Bilateral infiltrates and small effusions. This could reflect pneumonia. Recommend follow-up when clinically feasible a PA and lateral film. Chest CT 03/30/22 16:25 IMPRESSION: Accessory right pleural fissure the superior segment of the right lower lobe from the basal segments. Several clustered superior segment right lower lobe nodules largest measuring 7 and 10 mm. Atelectasis or small infiltrate in the anterior basal segment of the left lower lobe. Infectious or inflammatory processes should be considered. Short-term follow-up chest CT in several months following antibiotic treatment recommended. Subsegmental atelectasis in the right lower lobe adjacent to the pleural effusion. Large right and small left pleural effusions. Enlarged heart. Fleischner guidelines were followed. Assessment and Plan (1) Atrial fibrillation with rapid ventricular response: Status: Acute (2) Acute heart failure: Status: Acute Plan On telemetry, she still in atrial fibrillation. Ventricular rate around 110/Min. Overnight, much lower. Slight increase in high sensitivity troponins and cardiac BNP. CT chest findings reviewed. Will need echocardiogram for further evaluation when heart rate is slightly better control. Otherwise, we can try to see if he can stop the diltiazem drip and started on oral diltiazem. Digoxin load for rate control. Anticoagulation with Eliquis. Based on findings on the echocardiogram can decide if ROGER/cardioversion is necessary. With findings of large right pleural effusion and small left effusion, reasonable to try empiric diuretics. Will follow up with you. Discussed with Dr. Chaidez. Procedures Date of Service Date of Service: 03/31/22
--- NOTE | 2022-03-31 10:54 | HO.PM.IMPN ---
Subjective Subjective Date of Service: 03/31/22 Interval History: Seen in f/u for AFIB with RVR, P. effusion Interval history: some cough, no sob, no palpitaion, HR is better but still on IV cardizem Review of Systems no sob no fever cough, no palpiation Physical Exam Vital Signs: Vital Signs: Last Vital Signs Temp 98.0 F 03/31/22 07:40 Pulse 74 03/31/22 07:40 Resp 18 03/31/22 07:40 BP 144/74 H 03/31/22 07:40 Pulse Ox 97 03/31/22 07:40 O2 Del Method 03/31/22 07:40 BMI result Body Mass Index 24.0 Const: Other: General: AO X 3, no acute distress Resp: CTA bilateral CVS: S1,S2, iregular iregular GI: +BS, NT, no distention Skin: No rash Neuro: motor grossly intact Psych: appropriate affect Objective Data Active Medications Acetaminophen (Acetaminophen 325 Mg Tablet) 325 mg PO Q6H PRN PRN Reason: Pain, Mild (Pain Scale 1-3) Amitriptyline HCl (Amitriptyline Hcl 10 Mg Tablet) 10 mg PO BEDTIME COUNTS INCLUDE 234 BEDS AT THE [facility] Last Admin: 03/30/22 21:45 Dose: 10 mg Documented By: MYRNA Apixaban (Apixaban 5 Mg Tablet) 5 mg PO Q12H DEYSI Last Admin: 03/31/22 10:02 Dose: 5 mg Documented By: KYLAH Digoxin (Digoxin 0.5 Mg/2 Ml Ampul) 0.25 mg IVPUSH Q6H DEYSI Stop: 04/01/22 04:01 Last Admin: 03/31/22 10:02 Dose: 0.25 mg Documented By: KYLAH Diltiazem HCl (Diltiazem Hcl 30 Mg Tablet) 30 mg PO QID COUNTS INCLUDE 234 BEDS AT THE [facility]; Protocol Last Admin: 03/31/22 10:02 Dose: 30 mg Documented By: KYLAH Escitalopram Oxalate (Escitalopram Oxalate 10 Mg Tablet) 10 mg PO BEDTIME DEYSI Last Admin: 03/30/22 21:44 Dose: 10 mg Documented By: MYRNA Diltiazem HCl 125 mg/ Sodium (Chloride) 125 mls @ 0 mls/hr IVCONT .Q0M DEYSI; Protocol Last Admin: 03/31/22 10:02 Dose: 5 mg/hr, 5 mls/hr Documented By: KYLAH Ceftriaxone Sodium 1 gm/ (Sodium Chloride) 50 mls @ 100 mls/hr IV Q24H COUNTS INCLUDE 234 BEDS AT THE [facility] Last Infusion: 03/30/22 20:00 Dose: 0 mls/hr Documented By: DEVI Influenza Virus Vaccine (Flu Vacc [id number](6mos Up)/Pf 0.5 Ml Syringe) 0.5 ml IM .ONCE ONE Stop: 03/31/22 13:01 Non-Formulary Medication (Rizatriptan) 1 tab PO DAILY MRX1 PRN PRN Reason: Migraine Headache Pharmacy Consult (Consult Rx Perform Med Rec) 1 each MISCELLANE ONCE PRN PRN Reason: Consult order Sodium Chloride (0.9 % Sodium Chloride Flush 3 Ml Syringe) 3 ml IVFLUSH QSHIFT COUNTS INCLUDE 234 BEDS AT THE [facility] Last Admin: 03/31/22 10:07 Dose: 3 ml Documented By: KYLAH Topiramate (Topiramate 100 Mg Tablet) 100 mg PO BEDTIME COUNTS INCLUDE 234 BEDS AT THE [facility] Last Admin: 03/30/22 21:44 Dose: 100 mg Documented By: MYRNA Labs CBC & Chem 7: 03/31/22 06:13 03/31/22 06:13 Labs: Laboratory Results - last 24 hr 03/30/22 03/30/22 03/30/22 13:49 13:49 13:49 MCV 88.7 MCH 29.1 MCHC 32.9 RDW 13.2 Plt Count 294 MPV 9.2 L Immature Gran % (Auto) 0.3 Neut % (Auto) 69.3 Lymph % (Auto) 18.8 L [place] % (Auto) 8.8 Eos % (Auto) 1.9 Baso % (Auto) 0.9 Lymph # (Auto) 1.3 [place] # (Auto) 0.6 Eos # (Auto) 0.1 Baso # (Auto) 0.1 Abs Immat Gran (auto) 0.02 Absolute Neuts (auto) 4.8 Absolute Nucleated RBC 0.000 Nucleated RBC % (auto) 0.0 PT INR Anion Gap 18 Estim Creat Clear Calc 33.2 Estimated GFR 44 Random Glucose 94 Lactic Acid Calcium 9.7 Magnesium 2.2 Troponin I High Sens 27.3 H B-Natriuretic Peptide 217 H Procalcitonin TSH 1.46 COVID-19 (IBAN) COVID-19 Clin Com 03/30/22 03/30/22 03/30/22 13:49 13:49 13:49 MCV MCH MCHC RDW Plt Count MPV Immature Gran % (Auto) Neut % (Auto) Lymph % (Auto) [place] % (Auto) Eos % (Auto) Baso % (Auto) Lymph # (Auto) [place] # (Auto) Eos # (Auto) Baso # (Auto) Abs Immat Gran (auto) Absolute Neuts (auto) Absolute Nucleated RBC Nucleated RBC % (auto) PT 12.2 INR 1.1 Anion Gap Estim Creat Clear Calc Estimated GFR Random Glucose Lactic Acid Calcium Magnesium Troponin I High Sens B-Natriuretic Peptide Procalcitonin 0.04 TSH COVID-19 (IBAN) Negative COVID-19 Clin Com See Note 03/30/22 03/30/22 03/30/22 14:27 16:47 17:40 MCV MCH MCHC RDW Plt Count MPV Immature Gran % (Auto) Neut % (Auto) Lymph % (Auto) [place] % (Auto) Eos % (Auto) Baso % (Auto) Lymph # (Auto) [place] # (Auto) Eos # (Auto) Baso # (Auto) Abs Immat Gran (auto) Absolute Neuts (auto) Absolute Nucleated RBC Nucleated RBC % (auto) PT INR Anion Gap Estim Creat Clear Calc Estimated GFR Random Glucose Lactic Acid 1.1 Calcium Magnesium Troponin I High Sens 26.2 H 21.3 H B-Natriuretic Peptide Procalcitonin TSH COVID-19 (IBAN) COVID-19 Clin Com 03/31/22 03/31/22 06:13 06:13 MCV 86.7 MCH 29.0 MCHC 33.4 RDW 13.1 Plt Count 261 MPV 9.2 L Immature Gran % (Auto) Neut % (Auto) Lymph % (Auto) [place] % (Auto) Eos % (Auto) Baso % (Auto) Lymph # (Auto) [place] # (Auto) Eos # (Auto) Baso # (Auto) Abs Immat Gran (auto) Absolute Neuts (auto) Absolute Nucleated RBC 0.000 Nucleated RBC % (auto) 0.0 PT INR Anion Gap 15 Estim Creat Clear Calc 37.7 Estimated GFR 50 Random Glucose 104 Lactic Acid Calcium 9.2 Magnesium Troponin I High Sens B-Natriuretic Peptide Procalcitonin TSH COVID-19 (IBAN) COVID-19 Clin Com Assessment and Plan (1) Acute heart failure: Status: Acute (2) Dyspnea: Status: Acute (3) Atrial fibrillation with rapid ventricular response: Status: Acute Plan 86-year-old past medical history of migraine-came to hospital because of palpitation, generalized weakness and shortness of breath. 1. NEW ONSET AFIB WITH RVR: Heart rate is controlled on IV Cardizem drip, her chads Vasc score is at least 3. Add PO cardizem and dig loading with 1 gram Eliquis for stroke prevention IV Lasix for possible heart failure with P. effusion Currently continue antibiotic, patient is tachycardia secondary to AFib, no sepsis 2. Dyspnea:? Could be multifactorial CHF etiology unclear versus pneumonia. Please see HPI:? Patient having short of breath with lying down flat also palpitations, elevated BNP Procalcitonin level is low No cough or phlegm or fever CT possible PNA--empiric Ceftriaxone 4.mild prolong qtc -electrolytes seems fine . psych eval for -medication adjustment. 5. Anxiety: Continue home medications DVT prophylaxis:? Given Eliquis in ED. In patient need:? AFib with RVR need IV Cardizem, also cardiac workup for dyspnea, DNR/DNI Quality Stroke Does the patient have a stroke diagnosis?: No VTE Prior VTE?: No VTE Risk Level:: Medical - moderate - high VTE Device Contraindication: N/A - Device Ordered VTE Drug Contraindication: N/A - Med Ordered
[2022-03-31 11:07] VITALS: BP 127/78; PULSE 80; RESP 16; TEMP 36.7; O2SAT 96
--- NOTE | 2022-03-31 11:25 | MHC.CM.PN ---
met with pt who lives with she hs no servasteris in the home at this time had quetions aboutn hiring help for her dc plan no yanis
--- NOTE | 2022-03-31 13:44 | MHC.CLN ---
RE: CONSULT POOR PO X 2 WEEKS RECOMMEND ADDING ENSURE BID TO INCREASE KCALS. SUPP TO PROVIDE 700KCALS, 40G PROTEIN WITH 100% ACCEPTANCE MONITOR PO INTAKE CLOSELY
[2022-03-31 15:23] VITALS: BP 120/65; PULSE 78; RESP 18; TEMP 37.1; O2SAT 94
--- NOTE | 2022-03-31 17:09 | P.CNPS_ITS ---
History of Present Illness Date of Service: 03/31/2022 Chief Complaint: afib w/ rvr, chf vs pneumonia Reason for Consult: medication Requesting physician: Juan Pablo Peter Discussed with referring provider: Yes Sources of Information: patient interviewed and chart reviewed HPI Narrative: 86-year-old past medical history of migraine-came to hospital because of palpita tion, generalized weakness and shortness of breath.?In ED patient was started on Cardizem drip also given Levaquin does for question of possible pneumonia. In addition patient was given 1 dose of Lasix also. She was given a diagnosis of AFIB with RVR. Started on Eliquis. Psych consult requested for mild prolonged qtc, on celexa at home. I spoke with pt, she reports she has been on celexa 10 mg for a long time and that this was prescribed by her OP neurologist for migraines in combination with amitriptyline and topamax. Says her Migraines are much better. Denies past psych history. Denies current psych sx. Past Psychiatric History: -Denies Medical Evaluation Reviewed: Yes [facility] Medical History (Updated 03/31/22 @ 10:48 by Tevin Newman MD) History of migraine Diagnostics Vital Signs (24Hr): Vital Signs - 24 hr 03/30/22 18:02 03/30/22 20:00 03/30/22 23:21 Temperature 97.4 F 97.7 F Pulse Rate 95 103 H 89 Respiratory Rate 18 18 17 Blood Pressure 132/73 149/73 H 141/80 H Pulse Oximetry 96 98 93 Oxygen Delivery Method Room Air Room Air Room Air 03/31/22 03:29 03/31/22 07:40 03/31/22 11:07 Temperature 97.5 F 98.0 F 98.1 F Pulse Rate 92 74 80 Respiratory Rate 18 18 16 Blood Pressure 122/83 144/74 H 127/78 Pulse Oximetry 94 97 96 Oxygen Delivery Method Room Air Room Air Room Air 03/31/22 15:23 Temperature 98.8 F Pulse Rate 78 Respiratory Rate 18 Blood Pressure 120/65 Pulse Oximetry 94 Oxygen Delivery Method Room Air BMI result Body Mass Index 24.0 Labs Results: 03/31/22 06:13 03/31/22 06:13 Labs: Laboratory Results - last 48 hr 03/30/22 03/30/22 03/30/22 13:49 13:49 13:49 WBC 6.9 RBC 4.94 Hgb 14.4 Hct 43.8 MCV 88.7 MCH 29.1 MCHC 32.9 RDW 13.2 Plt Count 294 MPV 9.2 L Immature Gran % (Auto) 0.3 Neut % (Auto) 69.3 Lymph % (Auto) 18.8 L [place] % (Auto) 8.8 Eos % (Auto) 1.9 Baso % (Auto) 0.9 Lymph # (Auto) 1.3 [place] # (Auto) 0.6 Eos # (Auto) 0.1 Baso # (Auto) 0.1 Abs Immat Gran (auto) 0.02 Absolute Neuts (auto) 4.8 Absolute Nucleated RBC 0.000 Nucleated RBC % (auto) 0.0 PT INR Sodium 140 Potassium 4.9 Chloride 108 Carbon Dioxide 19 L Anion Gap 18 BUN 15 Creatinine 1.18 Estim Creat Clear Calc 33.2 Estimated GFR 44 Random Glucose 94 Lactic Acid Calcium 9.7 Magnesium 2.2 Troponin I High Sens 27.3 H B-Natriuretic Peptide 217 H Procalcitonin TSH 1.46 COVID-19 (IBAN) COVID-Friend Traveler 03/30/22 03/30/22 03/30/22 13:49 13:49 13:49 WBC RBC Hgb Hct MCV MCH MCHC RDW Plt Count MPV Immature Gran % (Auto) Neut % (Auto) Lymph % (Auto) [place] % (Auto) Eos % (Auto) Baso % (Auto) Lymph # (Auto) [place] # (Auto) Eos # (Auto) Baso # (Auto) Abs Immat Gran (auto) Absolute Neuts (auto) Absolute Nucleated RBC Nucleated RBC % (auto) PT 12.2 INR 1.1 Sodium Potassium Chloride Carbon Dioxide Anion Gap BUN Creatinine Estim Creat Clear Calc Estimated GFR Random Glucose Lactic Acid Calcium Magnesium Troponin I High Sens B-Natriuretic Peptide Procalcitonin 0.04 TSH COVID-19 (IBAN) Negative COVID-Friend Traveler See Note 03/30/22 03/30/22 03/30/22 14:27 16:47 17:40 WBC RBC Hgb Hct MCV MCH MCHC RDW Plt Count MPV Immature Gran % (Auto) Neut % (Auto) Lymph % (Auto) [place] % (Auto) Eos % (Auto) Baso % (Auto) Lymph # (Auto) [place] # (Auto) Eos # (Auto) Baso # (Auto) Abs Immat Gran (auto) Absolute Neuts (auto) Absolute Nucleated RBC Nucleated RBC % (auto) PT INR Sodium Potassium Chloride Carbon Dioxide Anion Gap BUN Creatinine Estim Creat Clear Calc Estimated GFR Random Glucose Lactic Acid 1.1 Calcium Magnesium Troponin I High Sens 26.2 H 21.3 H B-Natriuretic Peptide Procalcitonin TSH COVID-19 (IBAN) COVID-19 Clin Com 03/31/22 03/31/22 06:13 06:13 WBC 6.3 RBC 4.66 Hgb 13.5 Hct 40.4 MCV 86.7 MCH 29.0 MCHC 33.4 RDW 13.1 Plt Count 261 MPV 9.2 L Immature Gran % (Auto) Neut % (Auto) Lymph % (Auto) [place] % (Auto) Eos % (Auto) Baso % (Auto) Lymph # (Auto) [place] # (Auto) Eos # (Auto) Baso # (Auto) Abs Immat Gran (auto) Absolute Neuts (auto) Absolute Nucleated RBC 0.000 Nucleated RBC % (auto) 0.0 PT INR Sodium 141 Potassium 4.2 Chloride 110 H Carbon Dioxide 20 L Anion Gap 15 BUN 14 Creatinine 1.04 Estim Creat Clear Calc 37.7 Estimated GFR 50 Random Glucose 104 Lactic Acid Calcium 9.2 Magnesium Troponin I High Sens B-Natriuretic Peptide Procalcitonin TSH COVID-19 (IBAN) COVID-19 Clin Com Imaging Radiology Impressions: ITS Impressions Chest X-Ray 03/30/22 13:03 IMPRESSION: Bilateral infiltrates and small effusions. This could reflect pneumonia. Recommend follow-up when clinically feasible a PA and lateral film. Chest CT 03/30/22 16:25 IMPRESSION: Accessory right pleural fissure the superior segment of the right lower lobe from the basal segments. Several clustered superior segment right lower lobe nodules largest measuring 7 and 10 mm. Atelectasis or small infiltrate in the anterior basal segment of the left lower lobe. Infectious or inflammatory processes should be considered. Short-term follow-up chest CT in several months following antibiotic treatment recommended. Subsegmental atelectasis in the right lower lobe adjacent to the pleural effusion. Large right and small left pleural effusions. Enlarged heart. Fleischner guidelines were followed. Mental Status Exam Mental Status Exam Patient Appearance: Well Grooomed and Appropriate Patient Orientation: Person, Place, Time and Situation Level of Consciousness: Awake and Appropriate Patient Behavior: Appropriate and Cooperative Mood Description: Calm and Appropriate Affect Description: Calm and Appropriate Patient Cognition Impaired: No Ability to Follow Directions: Excellent Speech Pattern: Clear Memory Description: Intact Hallucinations: None Delusions: Not Present Thought Process: Intact Thought Content: positive for Intact Judgement: Good Medications Medications Current Medications Acetaminophen (Acetaminophen 325 Mg Tablet) 325 mg PO Q6H PRN PRN Reason: Pain, Mild (Pain Scale 1-3) Amitriptyline HCl (Amitriptyline Hcl 10 Mg Tablet) 10 mg PO BEDTIME [facility] Last Admin: 03/30/22 21:45 Dose: 10 mg Apixaban (Apixaban 5 Mg Tablet) 5 mg PO Q12H [facility] Last Admin: 03/31/22 10:02 Dose: 5 mg Digoxin (Digoxin 0.5 Mg/2 Ml Ampul) 0.25 mg IVPUSH Q6H [facility] Stop: 04/01/22 04:01 Last Admin: 03/31/22 10:02 Dose: 0.25 mg Diltiazem HCl (Diltiazem Hcl 30 Mg Tablet) 30 mg PO QID [facility]; Protocol Last Admin: 03/31/22 10:02 Dose: 30 mg Escitalopram Oxalate (Escitalopram Oxalate 5 Mg Tablet) 5 mg PO BEDTIME [facility] Diltiazem HCl 125 mg/ Sodium (Chloride) 125 mls @ 0 mls/hr IVCONT .Q0M [facility]; Protocol Last Admin: 03/31/22 10:02 Dose: 5 mg/hr, 5 mls/hr Ceftriaxone Sodium 1 gm/ (Sodium Chloride) 50 mls @ 100 mls/hr IV Q24H [facility] Last Infusion: 03/30/22 20:00 Dose: Infused Pharmacy Consult (Consult Rx Perform Med Rec) 1 each MISCELLANE ONCE PRN PRN Reason: Consult order Sodium Chloride (0.9 % Sodium Chloride Flush 3 Ml Syringe) 3 ml IVFLUSH QSHIFT [facility] Last Admin: 03/31/22 10:07 Dose: 3 ml Topiramate (Topiramate 100 Mg Tablet) 100 mg PO BEDTIME [facility] Last Admin: 03/30/22 21:44 Dose: 100 mg Allergies Allergies Allergy/AdvReac Type Severity Reaction Status Date / Time No Known Allergies Allergy Verified 03/30/22 13:37 Assessment & Plan Assessment & Plan (1) Acute heart failure: Status: Acute Code(s): I50.9 - Heart failure, unspecified (2) Atrial fibrillation with rapid ventricular response: Status: Acute Code(s): I48.91 - Unspecified atrial fibrillation Plan Discussed with pt that celexa has risk of prolonged qtc associated with doses greater than 40 mg. Discussed possible switch to prozac, however pt does not want to start a new medication and prefers to actually discontinue celexa. Recommended a taper, as she was given 10 mg of lexapro due to celexa not being on formulary, will decrease lexapro to 5 mg daily and may discontinued after 1-2 weeks depending on discontinuation sx. Pt will follow up with her OP neurologist. I have shared this with Dr. Chaidez Thank you for this consultation. If you have any questions or concerns, please do not hesitate to contact psychiatry service. I spent minutes with the patient and/or on the patient floor today, greater than?50% of which was spent counseling/coordinating care. Patient educated on: medication risk/benefits
[2022-03-31] MEDS: cefTRIAXone sodium 1 GM in 0.9 % Sodium Chloride 50 ML IV (17:40)
[2022-03-31 19:32] VITALS: BP 128/65; PULSE 92; RESP 18; TEMP 37.2; O2SAT 98
[2022-03-31] MEDS: Amitriptyline HCl 10 MG TABLET PO (22:10)
[2022-03-31] MEDS: Topiramate 100 MG TABLET PO (22:10)
[2022-03-31] MEDS: Escitalopram Oxalate 5 MG TABLET PO (22:10)
[2022-03-31 23:04] VITALS: BP 132/64; PULSE 76; RESP 18; TEMP 36.4; O2SAT 95
[2022-04-01 03:09] VITALS: BP 146/80; PULSE 78; RESP 18; TEMP 36.8; O2SAT 94
[2022-04-01 07:35] VITALS: BP 143/73; PULSE 74; RESP 18; TEMP 36.7; O2SAT 96
[2022-04-01] MEDS: dilTIAZem HCL 30 MG TABLET PO (08:13)
--- NOTE | 2022-04-01 09:14 | ECG_ITS ---
Test Reason : ? afib Blood Pressure : / mmHG Vent. Rate : 081 BPM Atrial Rate : 000 BPM P-R Int : 000 ms QRS Dur : 080 ms QT Int : 498 ms P-R-T Axes : 000 081 123 degrees QTc Int : 578 ms Atrial fibrillation Nonspecific ST and T wave abnormality Prolonged QT Abnormal ECG When compared with ECG of 30-MAR-2022 15:27, ST more depressed Inferior leads Lateral leads Referred By: Pete Chaidez Electronically Signed By:HOLDEN ORTEGA MD
--- NOTE | 2022-04-01 09:48 | PM.PNCARD ---
Subjective Subjective Date of Service: 04/01/22 Interval history: She states that she feels much better. Shortness of breath is improved. Review of Systems Review of Systems Yes all other systems are reviewed and are negative Constitutional: Reports as per HPI Eyes: Reports as per HPI Reports as per HPI Cardiovascular: Reports as per HPI, Denies acrocyanosis, Denies cool extremities, Denies chest pain, Denies leg edema, Denies lightheadedness, Denies palpitations and Denies dyspnea Respiratory: Reports as per HPI, Reports no additional respiratory complaints and Denies dyspnea Gastrointestinal: Reports as per HPI and Reports no additional gastrointestinal complaints Genitourinary: Reports as per HPI Musculoskeletal: Reports no additional musculoskeletal complaints and Reports as per HPI Skin/Breast: Reports system reviewed and no additional complaints, except as docu Reports system reviewed and no additional complaints, except as documented and Reports as per HPI Psychiatric: Reports no additional psychiatric complaints and Reports as per HPI Endocrine: Reports no additional endocrine complaints, Reports as per HPI and Denies palpitations Hematologic/Lymphatic: Reports no additional hematologic/lymphatic complaints and Reports as per HPI Allergic/Immunologic: Reports no additional allergic/immunologic complaints and Reports as per HPI Physical Exam Vital Signs: Last Vital Signs Temp 98.1 F 04/01/22 07:35 Pulse 74 04/01/22 07:35 Resp 18 04/01/22 07:35 BP 143/73 H 04/01/22 07:35 Pulse Ox 96 04/01/22 07:35 O2 Del Method 04/01/22 07:35 BMI result Body Mass Index 24.0 Const General: comfortable and no acute distress Orientation/consciousness: patient oriented x3 HEENT Other: Unremarkable Head: Yes normal to inspection Neck Neck: Yes normal visual inspection Chest Chest palpation & inspection: normal inspection of the chest Resp Auscultation: clear to auscultation bilaterally Cardio Palpation: normal PMI Heart sounds: S1 normal heart sound present, S2 normal heart sound present, no gallops, no murmurs and no rubs GI Palpation (GI): Soft to palpation Back/Spine/Pelvis Other: unremarkable Skin General skin exam: no rashes or lesions noted Neuro General: patient oriented x3 Extrem General: Yes normal to inspection Psych Mental Status: mental status grossly normal Objective Labs and Meds Result diagrams: 03/31/22 06:13 03/31/22 06:13 Progress Note: A&P Assessment and plan (1) Atrial fibrillation with rapid ventricular response: Status: Acute Assessment and Plan: Ventricular rate seems improved. She still is in atrial fibrillation. Stop the diltiazem drip. Changed to sustained release oral diltiazem. Continue digoxin at a maintenance dose of 125 mcg daily. Continue with Eliquis. Will get outpatient Holter. (2) Acute diastolic (congestive) heart failure: Status: Acute Assessment and Plan: Chest CT scan shows large right and small left pleural effusions. Could be from congestive heart failure related to atrial fibrillation. Low-dose diuretics. Plan Will arrange follow-up in the office. Patient is willing to come for appointments. Discussed with Dr. Chaidez. Also discussed with RN. Time Spent With Patient Time: Total time spent is greater than 50% in coordination of care (as documented) at patient's floor/unit and/or counseling patient: 35min. Progress Note: Quality Stroke Does the patient have a stroke diagnosis?: No Procedures Date of Service Date of Service: 04/01/22
[2022-04-01 11:22] VITALS: BP 141/75; PULSE 82; RESP 18; TEMP 36.7; O2SAT 95
[2022-04-01] MEDS: Apixaban 5 MG TABLET PO (11:54)
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
[2022-04-01] MEDS: dilTIAZem HCL CD 120 MG CAP.ER.DEG PO (12:46)
--- NOTE | 2022-04-01 14:10 | MHC.CM.PN ---
pt dcd home with vna
--- NOTE | 2022-04-01 15:49 | P.F2F_ITS ---
Service Date Service Date: 04/01/22 Encounter Date of encounter: 04/01/22 Reasons for Services Signs and symptoms assessed: Weakness and shortness of breath from heart failure and atrial fibrilation Homebound: Leaving the home is medically contraindicated at this time without the asist of a device and/or another person due th the listed conditions above and below. Reason homebound: shortness of breath with minimal effort Homebound supporting statement: Homebound due to shortness from afib and heart failure and therefore needs the assistance of another person Certification: Based on the above findings, I certify that this patient is confined to the home and needs intermittent group home care, physical therapy and/or speech therapy, or continues to need occupational therapy. The patient is under my care, and I have initiated the establishment of the plan of care. The patient will be followed by a physician who will periodically review the plan of care.
== END 2022-04-01 14:45 | disposition home health service (06) | DRG 308 ==
LOC: HO.ED 15:43 → HO.EDOVER 17:08 → HO.IMC 19:46
PROVIDERS: Admitting Provider Internal Medicine; Emergency Provider Emergency Medicine; PCP Internal Medicine; Visit Provider Internal Medicine
DX: I48.91 Unspecified atrial fibrillation (principal); I50.31 Acute diastolic (congestive) heart failure; J18.9 Pneumonia, unspecified organism; R91.1 Solitary pulmonary nodule; R94.31 Abnormal electrocardiogram [ECG] [EKG]; Z66 Do not resuscitate; F41.9 Anxiety disorder, unspecified; Z20.822 Contact with and (suspected) exposure to COVID-19; Z79.899 Other long term (current) drug therapy
CPT/HCPCS: 36415; 71045; 71250; 80048; 83605; 83735; 83880; 84145; 84443; 84484; 85025; 85027; 85610; 87040; 87635; 93005; 93306; 96365; 96375; 99285; J0696; J1160; J1940; J1956

== ENCOUNTER → 2022-04-22 14:28 | Outpatient (REF) | payer MEDICARE, OTHER, SELFPAY ==
--- NOTE | 2022-04-22 14:31 | HM_ITS ---
Conclusion: 1. Patient was monitored for total period of 2 days and 6 hours 2. Baseline rhythm is atrial fibrillation with average heart of 82 beats per minute with adequate rate control 3. No significant pauses noted 4. Total of 690 PVCs accounting for 0.26% total beats account for occasional PVCs 5. No patient reported events MTDD
== END ==
LOC: HO.CARD 14:28
PROVIDERS: PCP Internal Medicine; Visit Provider Internal Medicine
DX: I48.91 Unspecified atrial fibrillation (principal)
CPT/HCPCS: 93242

== ENCOUNTER → 2022-06-12 13:38 | Outpatient (BNVA) | payer MEDICARE, OTHER, SELFPAY | PROVIDERS: PCP Internal Medicine; Referring Provider Internal Medicine; Visit Provider Nurse Practitioner Family | DX: I48.91 Unspecified atrial fibrillation (principal); I50.30 Unspecified diastolic (congestive) heart failure | CPT/HCPCS: 93005; 99212 ==

== ENCOUNTER 2022-09-03 11:51 | Outpatient (REF) | payer MEDICARE, OTHER, SELFPAY ==
[2022-09-03 14:03] LABS: MANUAL DIFF FLAG NO
[2022-09-03 14:30] LABS: Basophils Percent Auto 0.5 % (0-2); Eosinophils Absolute Auto 0.2 X10*3/uL (0.0-0.4); Eosinophils Percent Auto 2.5 % (0-4); Hematocrit 40.7 % (37.0-47.0); Hemoglobin 13.1 g/dl (12.0-16.0); Imm Gran Abs Auto 0.02 X10*3/uL (0.00-0.03); Imm Gran Pct Auto 0.3 % (0.0-0.4); Lymphocytes Absolute Auto 1.3 X10*3/uL (1.2-4.9); Lymphocytes Percent Auto 20.2 % (20-40); Mean Corpuscular HGB Conc 32.2 g/dl (31.0-35.0); Mean Corpuscular Volume 90.2 fL (80.0-98.0); Mean Platelet Volume 9.6 fL (9.4-12.3); Monocytes Absolute Auto 0.6 X10*3/uL (0.1-1.2); Monocytes Percent Auto 8.6 % (2-11); Neutrophils Absolute Auto 4.4 x10*3/uL (2.0-8.3); Neutrophils Percent Auto 67.9 % (45-73); Platelet Count 259 X10*3/uL (160-400); Red Blood Count 4.51 X10*6/uL (4.20-5.50); Red Cell Distribution Width 13.3 % (11.0-16.0); White Blood Count 6.4 X10*3/uL (4.8-10.8)
[2022-09-03 15:08] LABS: Alanine Aminotransferase 10 U/L (0-31); Albumin Level 4.2 g/dL (3.5-5.0); Alkaline Phosphatase 40 U/L (39-117); Anion Gap 10 (12-20); Aspartate Amino Transferase 14 U/L (5-31); Bilirubin Total 0.6 mg/dL (0.0-1.0); Blood Urea Nitrogen 16 mg/dL (9-16); C Reactive Protein < 0.10 mg/dL (< or = 0.50); Calcium 9.3 mg/dL (8.4-10.2); Carbon Dioxide 27 mmol/L (22-29); Chloride 110 mmol/L (96-108); Estimated Glomerular Filt Rate 45; Glucose Random 93 mg/dL (60-115); Potassium 4.4 mmol/L (3.3-5.1); Sodium 143 mmol/L (135-145); Total Protein 6.3 g/dL (6.5-8.0)
[2022-09-03 15:10] LABS: Digoxin 0.7 ng/mL (0.8-2.0)
== END 2022-09-03 11:52 | disposition home or self-care (01) ==
LOC: HO.10HDL 11:51
PROVIDERS: Visit Provider Internal Medicine
DX: R30.0 Dysuria (principal); I48.91 Unspecified atrial fibrillation; I12.9 Hypertensive chronic kidney disease with stage 1 through stage 4 chronic kidney disease, or unspecified chronic kidney disease; N18.9 Chronic kidney disease, unspecified; Z79.899 Other long term (current) drug therapy
CPT/HCPCS: 36415; 80053; 80162; 81003; 83735; 85025; 86140; 87086

== ENCOUNTER → 2022-09-24 10:13 | Outpatient (BNVA) | payer MEDICARE, OTHER, SELFPAY | PROVIDERS: PCP Internal Medicine; Referring Provider Internal Medicine; Visit Provider Internal Medicine | DX: I48.19 Other persistent atrial fibrillation (principal); I50.32 Chronic diastolic (congestive) heart failure | CPT/HCPCS: 99212 ==

== ENCOUNTER 2022-10-26 07:29 | Day surgery (SDC) | payer MEDICARE, OTHER, SELFPAY ==
[2022-10-21 16:06] VITALS: BMI 20.8
--- NOTE | 2022-10-23 08:09 | MHC.SHP ---
Pre-Procedural Eval Section A Date of Service: 10/23/22 The patient is an INPATIENT: No Changes since office visit: No Cold of Flu in the past 2 weeks, No New Medical Problems, No Changes in Medication and No Patient answered all questions The History & Physical has been completed within 30 days and I have reviewed it.: Yes Section B Chief Complaint: Age-related nuclear cataract, right eye Allergies: Allergies Allergy/AdvReac Type Severity Reaction Status Date / Time No Known Allergies Allergy Verified 10/21/22 16:04 Plan Diagnosis/Plan: Unchanged I have reviewed the history and physical and performed a pertinent physical examination on my patient. No changes have occurred unless specified. Time Spent With Patient Time: Total time managing care of this patient today ____ minutes.
--- NOTE | 2022-10-23 14:17 | HP_ITS ---
DATE OF SERVICE: 10/26/2022 HISTORY OF PRESENT ILLNESS: Patient is an 86-year-old female, scheduled for cataract surgery on October 26. She feels well. PRESENT MEDICATIONS: Digoxin, Eliquis, topiramate, diltiazem, amitriptyline, rizatriptan, and Imodium A-D as needed. ALLERGIES: SHE REPORTS NO ALLERGIES TO MEDICINES. PAST MEDICAL HISTORY: Significant for atrial fibrillation, hypertension, history of tobacco use, migraines, congestive heart failure, chronic renal insufficiency, pneumonia, anxiety. No prior surgery reported. FAMILY HISTORY: Mother at 87 from breast cancer. Father 83. She has 4 siblings, 1 from trauma and epilepsy. SOCIAL HISTORY: She is , retired, lives with her spouse. She has 3 children. REVIEW OF SYSTEMS: The vision changes. No fevers or sweats. No complaints of fatigue. No headaches presently. No palpitations or chest pain. No peripheral edema. No complaints of cough or shortness of breath. Some abdominal discomfort with occasional diarrhea. No dysuria. No complaints of arthritis. Some numbness in her feet. Sleep is normal. Appetite is normal. No reports of hay fever. No skin complaints. PHYSICAL EXAMINATION: GENERAL: She is awake and alert. She is in no distress. Well nourished. VITAL SIGNS: Temperature is 98.2, pulse 81, respirations 16, blood pressure 128/78, 98% oxygen saturation on room air. Her weight is 128, her height is 5 feet 6 inches. HEENT: Clear. NECK: Supple. No lymph nodes, bruits, or masses. HEART: Sounds irregularly irregular, AFib. LUNGS: Clear, but distant. ABDOMEN: Soft and nontender. EXTREMITIES: No clubbing, cyanosis, or edema. Positive pulses. NEUROLOGIC: Nonfocal. PLAN: She is medically stable for the proposed procedure. I will be available if there are any medical questions. MD MIHIR Valenzuela/DEEPAK / [phone]
[2022-10-26] MEDS: Ketorolac Tromethamine 0.5% Op 5 ML DROPS 1 DROP EYE-RIGHT ×3 (08:21→08:39)
[2022-10-26] MEDS: Tetracaine HCl/PF 0.5% Oph Sol 4 ML DROPS 1 DROP EYE-RIGHT (08:21)
[2022-10-26] MEDS: Tropicamide 1 % Ophth Sol 3 ML BTL 1 DROP EYE-RIGHT ×3 (08:21→08:39)
[2022-10-26] MEDS: Phenylephrine HCL 2.5% Oph SoL 2 ML BOTTLE 1 DROP EYE-RIGHT ×3 (08:21→08:39)
--- NOTE | 2022-10-26 08:21 | P.CONAN_ITS ---
[facility] Active Problems Active Problems: All Active Problems (Updated 10/21/22 @ 16:08 by Dipti Melendrez RN) Atrial fibrillation (Acute) Diastolic heart failure (Acute) Persistent atrial fibrillation (Acute) Chronic heart failure with preserved ejection fraction (HFpEF) (Acute) Past Medical History Medical History Anxiety Cataract Chronic heart failure with preserved ejection fraction (HFpEF) History of migraine Persistent atrial fibrillation Pulmonary nodule Family History Family History Mother Breast cancer Surgical History Surgical History Hx of colonoscopy History of Problems with Anesthesia: No Social History Social History Household Members: Spouse Housing: Condominium Are you a primary healthcare project manager to a significant other at home: No Do you presently have visiting nurse or other home services: No Alcohol intake: never Patient Tobacco Use Status: Former Tobacco user Quit Date: years ago Tobacco use type: Cigarette Use of substances other than those prescribed or required for medical reasons: No Have you been hit, kicked, punched, or otherwise hurt by someone within the past year? If so, by whom?: No Are you DNR?: No Advance Directives: Yes Advance Directives Information Provided: No Advance Directives on File: Yes Advance Directives Date on File: 03/30/22 Recently lost weight without trying: No Nutrition Risks: Surgical patient >75years service: No Meds Allergies Allergy/AdvReac Type Severity Reaction Status Date / Time No Known Allergies Allergy Verified 10/26/22 08:09 Active Medications: Current Medications Cyclopentolate HCl (Cyclopentolate 1 % Ophth Renee 2 Ml Drpbtl) 1 drop EYE-RIGHT Q5M DEYSI Stop: 10/26/22 08:26 Lactated Ringer's (Lr) 500 mls @ 50 mls/hr IV .Q10H DEYSI Stop: 10/26/22 18:14 Ketorolac Tromethamine (Ketorolac Tromethamine 0.5% Op 5 Ml Drops) 1 drop EYE-RIGHT Q5M DEYSI Stop: 10/26/22 08:26 Phenylephrine HCl (Phenylephrine Hcl 2.5% Oph Renee 2 Ml Bottle) 1 drop EYE-RIGHT Q5M DEYSI Stop: 10/26/22 08:26 Povidone Iodine (Povidone Iodine 5 % Ophth Soln 30 Ml Bottle) 1 appl EYE-RIGHT PREOP PRN PRN Reason: Pre-Op Surgical Implant Prophy Tropicamide (Tropicamide 1 % Ophth Renee 3 Ml Btl) 1 drop EYE-RIGHT Q5M DEYSI Stop: 10/26/22 08:26 Home Medications Medication Instructions Recorded Confirmed Last Taken Type amitriptyline 10 mg tablet 10 mg PO BEDTIME 09/24/22 10/21/22 Unknown History rizatriptan 10 mg tablet 10 mg PO DAILY MRX1 PRN Migraine 09/24/22 10/21/22 Unknown History Headache topiramate 25 mg tablet 100 mg PO BEDTIME 09/24/22 10/21/22 Unknown History diltiazem HCl 120 mg capsule,24 120 mg PO DAILY 10/21/22 10/21/22 10/26/22 History hr,extended release (Tiadylt ER) escitalopram oxalate 10 mg tablet 10 mg PO DAILY 10/21/22 10/21/22 10/26/22 History Exam Exam Date and Time: October 26, 2022 0821 Height,Weight and Vital Signs: Height 5 ft 6 in Weight 58.513 kg Airway Mallampati Class: III TM Dist: >3cm Neck ROM: Full Loose/Missing/Broken Teeth: No Heart: irreg ireegular rhythm Lungs: CTA Assessment and Plan Assessment Anesthesia Assessment: Anesthesia Plan Discussed Final Anesthetic Review History of Problems with Anesthesia: No NPO: Yes ASA Class: III Final Preanesthetic Review: Meds/Allgs Chart Reviewed, Consent Obtained/Reviewed and Anes Risks/Benef Reviewed Patient Risk: Intermediate Procedure Risk: Low Anesthetic Plan Anesthetic Plan: MAC: Disposition: Standard PACU
[2022-10-26] MEDS: Cyclopentolate 1 % Ophth Sol 2 ML DRPBTL 1 DROP EYE-RIGHT ×3 (08:22→08:40)
[2022-10-26] MEDS: Lactated Ringers 500 ML 50 ML IV (08:22)
[2022-10-26 08:41] VITALS: BP 166/86; PULSE 79; RESP 18; TEMP 36.6; O2SAT 96
--- NOTE | 2022-10-26 09:51 | P.PCNO_ITS ---
Ophthalmology Procedure Procedure Date of Service: 10/26/22 Ophthalmology Viscoelastic: Healon Duet Dual Pack Pro Ophthalmology Lenses: TECNIS ZXR00 (21.5) Procedure Notes: PREOPERATIVE DIAGNOSIS: Decreased visual acuity right eye secondary to cataract POSTOPERATIVE DIAGNOSIS: Same PROCEDURE: Right cataract extraction with multifocal intraocular lens insertion SURGEON: Carlos Rooney M.D. ANESTHESIA: Topical/MAC ESTIMATED BLOOD LOSS: None COMPLICATIONS: None After obtaining informed consent, the patient was brought to the operating room suite and placed in the supine position. After adequate sedation per anesthesia, topical drops of Tetracaine were given to the right eye. The eye was then prepped and draped in the usual sterile fashion. The operating room microscope was then positioned over the operative eye and a lid speculum placed. A paracentesis was created. Viscoelastic was then instilled into the anterior chamber. A three plane incision was then created temporally, utilizing a 2.85 mm keratome. Capsulotomy forceps were then utilized to create a circular tear capsulotomy. Hydrodissection and hydrodelineation were carried out until adequate mobilization of the nucleus occurred. Phacoemulsification was then utilized to remove the dense central nu cleus followed by removal of the cortical material utilizing the automated aspiration irrigation unit. Viscoelastic was instilled into the posterior capsular bag followed by placement of a multifocal posterior chamber intraocular lens without difficulty. The residual Viscoelastic was then removed utilizing the automated IA machine. The wound was checked and found to be watertight. The patient tolerated the procedure well and the lid speculum was removed. Intracameral injection of Vigamox 0.1 mL followed by a subtenon injection of Kenalog-40 0.2 mL were administered. The patient will be seen in the a.m.
[2022-10-26 10:14] VITALS: BP 155/69; PULSE 75; RESP 18; TEMP 37.1; O2SAT 98
== END 2022-10-26 10:24 | disposition home or self-care (01) ==
PROVIDERS: PCP Internal Medicine; Visit Provider Ophthalmology
PROC: (CPT 66984; principal; 2022-10-26 09:40)
DX: H25.11 Age-related nuclear cataract, right eye (principal); H52.4 Presbyopia; H18.413 Arcus senilis, bilateral; H04.123 Dry eye syndrome of bilateral lacrimal glands; H02.831 Dermatochalasis of right upper eyelid; I48.19 Other persistent atrial fibrillation; I13.0 Hypertensive heart and chronic kidney disease with heart failure and stage 1 through stage 4 chronic kidney disease, or unspecified chronic kidney disease; N18.9 Chronic kidney disease, unspecified; I50.9 Heart failure, unspecified; Z79.01 Long term (current) use of anticoagulants; Z79.899 Other long term (current) drug therapy; Z87.891 Personal history of nicotine dependence
CPT/HCPCS: 66984; J2250; J3010; J3301; V2788

== ENCOUNTER 2022-11-09 08:30 | Day surgery (SDC) | payer MEDICARE, OTHER, SELFPAY ==
[2022-10-21 16:08] VITALS: BMI 20.8
--- NOTE | 2022-11-06 08:28 | MHC.SHP ---
Pre-Procedural Eval Section A Date of Service: 11/06/22 The patient is an INPATIENT: No Changes since office visit: No Cold of Flu in the past 2 weeks, No New Medical Problems, No Changes in Medication and No Patient answered all questions The History & Physical has been completed within 30 days and I have reviewed it.: Yes Section B Chief Complaint: Age-related nuclear cataract, left eye Allergies: Allergies Allergy/AdvReac Type Severity Reaction Status Date / Time No Known Allergies Allergy Verified 10/26/22 08:09 Plan Diagnosis/Plan: Unchanged I have reviewed the history and physical and performed a pertinent physical examination on my patient. No changes have occurred unless specified. Time Spent With Patient Time: Total time managing care of this patient today ____ minutes.
--- NOTE | 2022-11-06 09:34 | HO.ANESPROP2 ---
Documented by User: Aisha Lacey NP 11/06/22 09:35 HPI - Anesthesia Eval Consult details Narrative: 86yo F for Left Cataract Extraction IOL Insertion PCP cleared 1st eye with Fent 50, Midaz 0.5 Eliquis for afib PMFSH Active Problems Active Problems: All Active Problems (Updated 10/21/22 @ 16:08 by Dipti Melendrez RN) Atrial fibrillation (Acute) Diastolic heart failure (Acute) Persistent atrial fibrillation (Acute) Chronic heart failure with preserved ejection fraction (HFpEF) (Acute) Past Medical History Medical History Anxiety Cataract Chronic heart failure with preserved ejection fraction (HFpEF) History of migraine Persistent atrial fibrillation Pulmonary nodule Family History Family History Mother Breast cancer Surgical History Surgical History Hx of colonoscopy History of Problems with Anesthesia: No Social History Social History Household Members: [facility] Are you a primary wound care coordinator to a significant other at home: No Do you presently have visiting nurse or other home services: No Alcohol intake: never Patient Tobacco Use Status: Former Tobacco user Quit Date: years ago Tobacco use type: Cigarette Use of substances other than those prescribed or required for medical reasons: No Have you been hit, kicked, punched, or otherwise hurt by someone within the past year? If so, by whom?: No Are you DNR?: No Advance Directives: Yes Advance Directives Information Provided: Yes Advance Directives on File: No Advance Directives Date on File: 03/30/22 Recently lost weight without trying: No Nutrition Risks: Surgical patient >75years service: No Meds Allergies Allergy/AdvReac Type Severity Reaction Status Date / Time No Known Allergies Allergy Verified 10/26/22 08:09 Home Medications Medication Instructions Recorded Confirmed Last Taken Type amitriptyline 10 mg tablet 10 mg PO BEDTIME 09/24/22 10/21/22 Unknown History rizatriptan 10 mg tablet 10 mg PO DAILY MRX1 PRN Migraine 09/24/22 10/21/22 Unknown History Headache topiramate 25 mg tablet 100 mg PO BEDTIME 09/24/22 10/21/22 Unknown History diltiazem HCl 120 mg capsule,24 120 mg PO DAILY 10/21/22 10/21/22 11/09/22 History hr,extended release (Tiadylt ER) escitalopram oxalate 10 mg tablet 10 mg PO DAILY 10/21/22 10/21/22 11/09/22 History Exam Exam Date and Time: November 06, 2022 0934 Height,Weight and Vital Signs: Height 5 ft 6 in Weight 58.513 kg Assessment and Plan Assessment Anesthesia Assessment: Chart Reviewed Final Anesthetic Review History of Problems with Anesthesia: No Documented by User: Blaise Hebert MD 11/09/22 09:51 [facility] Past Medical History Medical History Anxiety Cataract Chronic heart failure with preserved ejection fraction (HFpEF) History of migraine Persistent atrial fibrillation Pulmonary nodule Family History Family History Mother Breast cancer Family history of problems with anesthesia: No Surgical History Surgical History Hx of colonoscopy Social History Social History Household Members: [facility] Are you a primary wound care coordinator to a significant other at home: No Do you presently have visiting nurse or other home services: No Alcohol intake: never Patient Tobacco Use Status: Former Tobacco user Quit Date: years ago Tobacco use type: Cigarette Use of substances other than those prescribed or required for medical reasons: No Have you been hit, kicked, punched, or otherwise hurt by someone within the past year? If so, by whom?: No Are you DNR?: No Advance Directives: Yes Advance Directives Information Provided: Yes Advance Directives on File: No Advance Directives Date on File: 03/30/22 Recently lost weight without trying: No Nutrition Risks: Surgical patient >75years service: No Meds Allergies Allergy/AdvReac Type Severity Reaction Status Date / Time No Known Allergies Allergy Verified 10/26/22 08:09 Home Medications Medication Instructions Recorded Confirmed Last Taken Type amitriptyline 10 mg tablet 10 mg PO BEDTIME 09/24/22 10/21/22 Unknown History rizatriptan 10 mg tablet 10 mg PO DAILY MRX1 PRN Migraine 09/24/22 10/21/22 Unknown History Headache topiramate 25 mg tablet 100 mg PO BEDTIME 09/24/22 10/21/22 Unknown History diltiazem HCl 120 mg capsule,24 120 mg PO DAILY 10/21/22 10/21/22 11/09/22 History hr,extended release (Tiadylt ER) escitalopram oxalate 10 mg tablet 10 mg PO DAILY 10/21/22 10/21/22 11/09/22 History Exam Airway Mallampati Class: II TM Dist: >3cm Neck ROM: Full Loose/Missing/Broken Teeth: No Heart: irreg irreg s1s2 Lungs: cta b/l Assessment and Plan Assessment Anesthesia Assessment: Anesthesia Plan Discussed Final Anesthetic Review Family History of Problems with Anesthesia: No NPO: Yes ASA Class: III Final Preanesthetic Review: No Changes in Pt Med Stat, Meds/Allgs Chart Reviewed, Consent Obtained/Reviewed and Anes Risks/Benef Reviewed Patient Risk: Intermediate Procedure Risk: Low Assessment/Block/Sedation in SS: Assess/Block/Sedation-SS Anesthetic Plan Anesthetic Plan: MAC: and Agree w/ Assess. and Plan Disposition: Standard PACU
[2022-11-09 08:50] VITALS: BP 156/83; PULSE 75; RESP 16; TEMP 36.4; O2SAT 96
[2022-11-09] MEDS: Tetracaine HCl/PF 0.5% Oph Sol 4 ML DROPS 1 DROP EYE-LEFT (08:57)
[2022-11-09] MEDS: Lactated Ringers 500 ML 50 ML IV (08:57)
[2022-11-09] MEDS: Ketorolac Tromethamine 0.5% Op 5 ML DROPS 1 DROP EYE-LEFT ×3 (08:59→09:00)
[2022-11-09] MEDS: Phenylephrine HCL 2.5% Oph SoL 2 ML BOTTLE 1 DROP EYE-LEFT ×3 (08:59→09:00)
[2022-11-09] MEDS: Cyclopentolate 1 % Ophth Sol 2 ML DRPBTL 1 DROP EYE-LEFT ×3 (08:59→09:00)
[2022-11-09] MEDS: Tropicamide 1 % Ophth Sol 3 ML BTL 1 DROP EYE-LEFT ×3 (08:59→09:00)
--- NOTE | 2022-11-09 10:30 | HO.PNOPHT ---
Ophthalmology Procedure Procedure Date of Service: 11/09/22 Ophthalmology Viscoelastic: Healon Duet Dual Pack Pro Ophthalmology Lenses: TECNIS ZXR00 (20.5) Procedure Notes: PREOPERATIVE DIAGNOSIS: Decreased visual acuity left eye secondary to cataract POSTOPERATIVE DIAGNOSIS: Same PROCEDURE: Left cataract extraction with multifocal intraocular lens insertion SURGEON: Carlos Rooney M.D. ANESTHESIA: Topical/MAC ESTIMATED BLOOD LOSS: None COMPLICATIONS: None After obtaining informed consent, the patient was brought to the operation room suite and placed in the supine position. After adequate sedation per anesthesia, topical drops of Tetracaine were given to the left eye. The eye was then prepped and draped in the usual sterile fashion. The operating room microscope was then positioned over the operative eye and a lid speculum placed. A paracentesis was created. Viscoelastic was then instilled into the anterior chamber. A three plane incision was then created temporally, utilizing a 2.85 mm keratome. Capsulotomy forceps were then utilized to create a circular tear capsulotomy. Hydrodissection and hydrodelineation were carried out until adequate mobilization of the nucleus occurred. Phacoemulsification was then utilized to remove the dense central nucleus followed by removal of the cortical material utilizing the automated aspiration irrigation unit. Viscoelastic was instilled into the posterior capsular bag followed by placement of a multifocal posterior chamber intraocular lens without difficulty. The residual Viscoelastic was then removed utilizing the automated IA machine. The wound was check and found to be watertight. The patient tolerated the procedure well and the lid speculum was removed. Intracameral injection of Vigamox 0.1 mL followed by a subtenon injection of Kenalog-40 0.2 mL were administered. The patient will be seen in the a.m.
[2022-11-09 10:52] VITALS: BP 156/70; PULSE 79; RESP 16; TEMP 36.4; O2SAT 97
== END 2022-11-09 11:09 | disposition home or self-care (01) ==
PROVIDERS: PCP Internal Medicine; Visit Provider Ophthalmology
PROC: (CPT 66984; principal; 2022-11-09 11:00)
DX: H25.12 Age-related nuclear cataract, left eye (principal); H52.4 Presbyopia; H18.413 Arcus senilis, bilateral; H04.123 Dry eye syndrome of bilateral lacrimal glands; I48.19 Other persistent atrial fibrillation; I50.32 Chronic diastolic (congestive) heart failure; Z79.01 Long term (current) use of anticoagulants; Z79.899 Other long term (current) drug therapy; Z87.891 Personal history of nicotine dependence
CPT/HCPCS: 66984; J3010; J3301; V2788

== ENCOUNTER 2023-01-27 11:11 | Outpatient (REF) | payer MEDICARE, OTHER, SELFPAY ==
--- NOTE | ~2023-01-27 | XR_ITS ---
EXAMINATION: XR CERVICAL SPINE CLINICAL INFORMATION: Neck pain COMPARISON: None available. TECHNIQUE: 5 views of the cervical spine obtained. FINDINGS: There is no prevertebral swelling. No acute cervical compression fractures. Degenerative disc space narrowing noted C4-C6, most pronounced C5-C6. Facet arthrosis appreciated at multiple levels. Spinous processes intact. There are foraminal encroachments related to facet and uncinate hypertrophic change on the right C4-C6 and on the left C3-C5. XR/XR cervical spine 5V IMPRESSION: 1. No acute compression fractures. Degenerative disc space narrowing C4-C6. 2. Multilevel facet arthrosis. Foraminal encroachments as noted above.
== END 2023-01-27 11:12 | disposition home or self-care (01) ==
LOC: HO.XRAY 11:11
PROVIDERS: PCP Internal Medicine; Visit Provider Internal Medicine
DX: M54.2 Cervicalgia (principal)
CPT/HCPCS: 72050

== ENCOUNTER 2024-09-25 15:13 | Outpatient (AMB) | payer MEDICARE, OTHER, SELFPAY ==
--- NOTE | 2024-09-25 15:14 | A.OFFPC_ITS ---
Vital Signs 09/25/24 15:37 Height 5 ft 6 in Weight 135 lb BMI 21.8 BP 124/76 Blood Pressure Location Lt brachial Position Sitting Pulse 88 Pulse Source Pulse Oximeter Temp 97.3 F Temp Source Axillary Pulse Oximetry (%) 98 Oxygen Delivery Method Room Air Intake Visit Reasons: Routine Electronic Video Games Servicer Required: No Accompanied by: Self / Same As Patient Allergies No Known Allergies Allergy (Verified 09/25/24 15:15) Tobacco use date assessed: 09/25/24 Fall risk assessment: No Falls in past year Dental Screening Dental Screen Date: 09/25/24 Did you have a dental visit in the last 12 months?: Yes Did you have a dental problem in the last 6 months where you did not have access to dental care?: No PFSH Medical History Cataract Anxiety Chronic heart failure with preserved ejection fraction (HFpEF) Persistent atrial fibrillation History of migraine Pulmonary nodule Surgical History Hx of colonoscopy Family History Mother Breast cancer Social History Household Members: Spouse Housing: Condominium Are you a primary director of primary care to a significant other at home: No Do you presently have visiting nurse or other home services: No Alcohol intake: never Patient Tobacco Use Status: Former Tobacco user Tobacco use type: Cigarette e-Cigarette/Vaping Use: Former Use Advance Directives Date on File: 03/30/22 service: No Current occupational status: retired Cognitive needs: No Hearing needs: No Vision needs: Yes (reading glasses) Questionnaire PHQ-9 Over the last 2 weeks, how often have you been bothered by any of the following problems? 1. Little interest or pleasure in doing things: nearly every day 2. Feeling down, depressed, or hopeless: not at all 3. Trouble falling or staying asleep, or sleeping too much: not at all 4. Feeling tired or having little energy: not at all 5. Poor appetite or overeating: not at all 6. Feeling bad about yourself - or that you are a failure or have let yourself or your family down: not at all 7. Trouble concentrating on things, such as reading the newspaper or watching television: not at all 8. Moving or speaking so slowly that other people could have noticed. Or the opposite - being so fidgety or restless that you have been moving around a lot more than usual: not at all 9. Thoughts that you would be better off or of hurting yourself in some way: not at all Total score: 3 Source: Developed by Drs. Ronnie Beal, Rosanna Burgess, Cristofer Guillen and colleagues, with an educational heavenly from [employer] Thrive Questionnaire Date Thrive assessed: 09/25/24 I am a: Patient Within the past 12 months, did the food you bought not last and you didn't have the money to get more?: Never true Within the past 12 months, did you worry whether your food would run out before you got money to buy more?: Never true Do you have trouble paying for medicines?: No Do you have trouble getting transportation to medical appointments?: No Do you have trouble taking care of your child, family member or friend?: No Do you have trouble with day-to-day activities such as bathing, preparing meals, shopping, managing finances, etc.?: No Are you currently unemployed and looking for a job?: No Are you interested in more education?: No THRIVE Score: 0 AUDIT C Alcohol Use Questionnaire (AUDIT-C) 1. How often do you have a drink containing alcohol?: Never 3. How often do you have six or more drinks on one occasion?: Never Total Score: 0 CANDIDA-7 AMB Questionnaire CANDIDA-7 Date CANDIDA - 7 assessed: 09/25/24 Feeling nervous, anxious, or on edge: 0 = Not at all Not being able to stop or control worryin = Not at all Worrying too much about different things: 0 = Not at all Trouble relaxin = Not at all Being so restless that it is hard to sit still: 0 = Not at all Becoming easily annoyed or irritable: 0 = Not at all Feeling afraid as if something awful might happen: 0 = Not at all Total CANDIDA-7 score (0-4 normal; 5-9 mild; 10-14 moderate; 15-21 severe): 0 Source: Developed by Ean Rodriguezet B.W. Aditya, Cristofer Guillen and colleagues, with an educational heavenly from [employer] Physical exam (Primary Care) Vital Signs: Last Vital Signs Temp 97.3 F 09/25/24 15:37 Pulse 88 09/25/24 15:37 BP 124/76 09/25/24 15:37 Pulse Ox 98 09/25/24 15:37 Oxygen Delivery Method Room Air 09/25/24 15:37 BMI result Body Mass Index 21.8 Tobacco/Smoking Status: Tobacco use Status Tobacco use date assessed 09/25/24 09/25/24 15:16 Patient Tobacco Use Status Former Tobacco user 09/25/24 15:47 Tobacco use type Cigarette 09/25/24 15:16 e-Cigarette/Vaping Use Former Use 09/25/24 15:47 PHQ-9: PHQ-9 Score PHQ-9: Total score 3 09/25/24 15:47 Thrive Assessment: Date of Thrive Assessment Date Thrive assessed 09/25/24 09/25/24 15:16 Coding Level of Care Code New Pt Level 4 (67970) Complex EM visit Add On G2211 Diagnoses Atrial fibrillation I48.91 Abdominal pain R10.9 Assessment & Plan Assessment & Plan (1) Atrial fibrillation: Code(s): I48.91 - Unspecified atrial fibrillation Category: Medical Plan: Rate is well controlled. Continue anticoagulation. (2) Abdominal pain: Code(s): R10.9 - Unspecified abdominal pain Plan: Non specific clinical exam. Will order blood work. Plan History of Present Illness The patient is an 88-year-old female who seeks continuation of care for her atrial fibrillation, managed with blood thinners. She acknowledges respiratory difficulties brought up by her daughter, relating them to a stomach flu two weeks prior, now resolved. She asserts no chronic sleep disturbances; lies flat with one pillow and denies any coughing or wheezing symptoms. The patient maintains good functionality in her daily activities including handling of financial duties, despite some confusion due to 's recent passing. Her history includes driving herself, no requirement for assistance in grocery shopping, and no smoking history. Social History - Family Status: The patient lives with her daughter and has three children, with one residing in [place]. - Functional Status: She independently drives and manages most tasks of daily living. Reports some confusion managing finances due to 's recent , but maintains responsibility for accounts and check-writing. - Exercise/Level of Activity: The patient is active, regularly walking, and conducts her own grocery shopping. - Substance Use: Denies smoking. Review of Systems Physical Exam General: Appearance normal, both eyes and all related structures Nutritional Appearance: Well nourished Orientation/consciousness: Patient oriented x3 Limitations: No limitations Head: Normal to inspection Neck: Normal visual inspection Chest: Normal palpation of entire chest wall Respiratory: Breathing hard Neurology: Patient oriented x3 Results Plan Patient was informed and verbally consented to the use of an ambient scribe for clinic note documentation during this visit. Discussion Notes During the visit, I reviewed the patient?s management of atrial fibrillation with current anticoagulation therapy. I emphasized ensuring no interactions with other medications, particularly those previously used for neck pain. We thoroughly discussed the logistics concerning her blood work location, ensuring patient convenience and timely follow-through. I provided anticipatory guidance concerning routine monitoring and recommended follow-up in six months, encouraging the patient to reach out for any concerns prior to the visit. Patient Instructions - Continue using blood thinners as prescribed. - Avoid usage of neck pain medication unless absolutely necessary, and consult if symptoms increase. - Complete ordered blood work at the hospital. - Contact the office if breathing difficulties persist or other symptoms arise. - Schedule follow-up appointment in six months, or sooner if needed. Orders: Orders Basic Metabolic Panel Today I48.91 - Unspecified atrial fibrillation, R10.9 - Unspecified abdominal pain Complete Blood Count no Diff Today I48.91 - Unspecified atrial fibrillation, R10.9 - Unspecified abdominal pain UA and rflx microscopic Today I48.91 - Unspecified atrial fibrillation, R10.9 - Unspecified abdominal pain Lipid Panel Today I48.91 - Unspecified atrial fibrillation, R10.9 - Unspecified abdominal pain Liver Panel Today I48.91 - Unspecified atrial fibrillation, R10.9 - Unspecified abdominal pain Thyroid Stimulating Hormone Today I48.91 - Unspecified atrial fibrillation, R10.9 - Unspecified abdominal pain
[2024-09-25 15:37] VITALS: BP 124/76; PULSE 88; TEMP 36.3; O2SAT 98; BMI 21.8
--- OUTSIDE RECORDS SUMMARY | 2024-09-25 18:01 | XMS_ITS | Clinical Summary ---
Author Organization [facility] Address [address] [place] [address] Care Team Providers Care [employer] Name Role Phone Kush Martin MD Primary Care Provider [phone] Medications dilTIAZem CD (CARDIZEM CD) 180 mg 24 hr capsule TAKE 1 CAPSULE BY MOUTH EVERY DAY 90 capsule 3 07/06/2024 Active Eliquis 5 mg tablet Take 1 tablet (5 mg total) by mouth 2 (two) times a day. Active digoxin (LANOXIN) 125 mcg (0.125 mg) tablet Take 1 tablet (125 mcg total) by mouth 1 (one) time each day. Active escitalopram (LEXAPRO) 5 mg tablet Take 1 tablet (5 mg total) by mouth 1 (one) time each day. Active furosemide (LASIX) 20 mg tablet Take 1 tablet (20 mg total) by mouth 1 (one) time each day. Active rizatriptan (MAXALT) 10 mg tablet Take 1 tablet (10 mg total) by mouth 1 (one) time if needed. Active traMADoL (ULTRAM) 50 mg tablet Take 1 tablet (50 mg total) by mouth. 04/19/2024 Active Encounters Date Type Department Care Team Description 08/31/2024 Telephone [facility] - [facility] [address] [facility] [address] [place] [address] Carlos Eduardo Valladares MD from Last 3 Months Surgical History Surgery Date Site/Laterality Comments PARATHYROIDECTOMY 05/04/2017 PROCEDURE: HISTORICAL PARATHYROIDECTOMY BREAST LUMPECTOMY PROCEDURE: HISTORICAL BREAST LUMPECTOMY BACK SURGERY PROCEDURE: HISTORICAL BACK SURGERY OTHER SURGICAL HISTORY PROCEDURE: DESTRUCTION OF INTERNAL HEMORRHOIDS Medical History Medical History Date Comments BCC (basal cell carcinoma of skin) 09/05/2020 DX:BCC (basal cell carcinoma of skin) Carotid bruit 09/05/2020 DX:Carotid bruit History of herpes zoster 09/05/2020 DX:Hist ory of herpes zoster Heart murmur 09/05/2020 DX:Heart murmur History of colon polyps 09/05/2020 DX:Histo ry of colon polyps Migraine 09/05/2020 DX:Migraine Depression 09/05/2020 DX:Depression Hyperlipidemia 09/05/2020 DX:Hyperlipidemi a Actinic keratosis 09/05/2020 DX:Actinic ker atosis; COMMENT: multiple Nodular goiter 09/05/2020 DX:Nodular goite r Osteoporosis 09/05/2020 DX:Osteoporosis Renal mass 09/05/2020 DX:Renal mass Thyroid nodule 09/05/2020 DX:Thyroid nodul e Urge incontinence 09/05/2020 DX:Urge incont inence History of cyst of breast 09/05/2020 DX:His tory of cyst of breast Lactase deficiency 09/05/2020 DX:Lactase de ficiency Sjogren's syndrome (CMS/HCC) 09/05/2020 DX: Sjogren's syndrome (HCC) Family History Medical History Relation Name Comments Glaucoma Brother 1 Stroke Brother 2 Dementia Father Alcohol abuse Breast cancer Mother Diabetes, Hype rtension Seizures Sister 1 Lymphoma Sister 2 Relation Name Status Comments Brother 1 Brother 2 Father Mother Sister 1 Sister 2 Social History Tobacco Use Types Packs/Day Years Used Date Smoking Tobacco: Former Smokeless Tobacco: Never Alcohol Use Standard Drinks/Week Comments Not Currently 0 (1 standard drink = 0.6 oz pur e alcohol) Comments Unknown Sex and Gender Information Value Date Recorded Sex Assigned at Not on file Legal Sex Female 6:57 AM EST Gender Identity Not on file Sexual Orientation Not on file Obstetrics History Last Filed Vital Signs Vital Sign Reading Time Taken Comments Blood Pressure 160/88 08/24/2023 3:32 PM EST Pulse 87 07/01/2023 3:26 PM EST Temperature - - Respiratory Rate - - Oxygen Saturation - - Inhaled Oxygen Concentration - - Weight 61.2 kg (135 lb) 08/24/2023 3:32 PM EST Height 170.2 cm (5' 7 ) 08/24/2023 3:32 PM EST Body Mass Index 21.14 08/24/2023 3:32 PM EST Plan of Treatment Upcoming Encounters Date Type Department Care Team (Late st Contact Info) Description 09/29/2024 8:50 AM EDT Office Visit [facility] - [facility] [address] [facility] [address] [place] [id number] Carlos Eduardo Valladares MD [address] [place] [address] Health Maintenance Due Date Last Done Comments COVID-19 Vaccine (#1) 1942 DTaP,Tdap,and Td Vaccines (1 - Tdap) 1956 Pneumococcal Vaccine: 50+ Years (1 of 2 - PCV) 1956 Zoster Vaccines (1 of 2) 1954 RSV Immunization Adult Patients (1 - 1-dose 75+ series) 2012 Cholesterol Screening (Lipid Panel) 05/30/2022 Depression Screening 05/30/2022 Falls Risk Assessment 05/30/2022 Medicare Annual Wellness Visit 05/30/2022 Osteoporosis Screening (Bone Density Screening) 05/30/2022 Social Influencers of Health Screening 05/30/2022 Influenza Vaccine (Season Ended) 2025 04/14/2022, 07/04/2021, 02/23/2020, Additional history exists HIB Vaccines Aged Out No longer eligi ble based on patient's age to complete this topic HPV Vaccines Aged Out No longer eligi ble based on patient's age to complete this topic Hepatitis A Vaccines Aged Out No long er eligible based on patient's age to complete this topic Hepatitis B Vaccines Aged Out No long er eligible based on patient's age to complete this topic IPV Vaccines Aged Out No longer eligi ble based on patient's age to complete this topic MMR Vaccines Aged Out No longer eligi ble based on patient's age to complete this topic Meningococcal ACWY Vaccine Aged Out N o longer eligible based on patient's age to complete this topic Meningococcal B Vaccine Aged Out No l onger eligible based on patient's age to complete this topic RSV Immunization Patients Under 20 months Aged Out No longer eligible based on patient's age to complete this topic Varicella Vaccines Aged Out No longer eligible based on patient's age to complete this topic Insurance MEDICARE Care Teams [employer] Relationship Specialty Start Date End Date Kush Martin MD [address] [place] [address] Dr Kamilah [place] PCP - General 11/23/22
== END 2024-09-25 16:07 | disposition home or self-care (01) ==
LOC: HO.HMCHD 15:13
PROVIDERS: PCP Internal Medicine; Visit Provider Internal Medicine
DX: I48.91 Unspecified atrial fibrillation (principal); R10.9 Unspecified abdominal pain

== ENCOUNTER → 2024-09-25 15:13 | Outpatient (BNVA) | payer MEDICARE, OTHER, SELFPAY | PROVIDERS: PCP Internal Medicine; Visit Provider Internal Medicine | DX: I48.91 Unspecified atrial fibrillation (principal); R10.9 Unspecified abdominal pain | CPT/HCPCS: 96127; 99202 ==

== ENCOUNTER 2025-04-09 14:33 | Outpatient (REF) | payer MEDICARE, OTHER, SELFPAY ==
[2025-04-09 17:10] LABS: Digoxin 0.6 ng/mL (0.8-2.0)
== END 2025-04-09 14:34 | disposition home or self-care (01) ==
LOC: HO.LAB 14:33
PROVIDERS: PCP Physician Assistant Medical; Visit Provider Physician Assistant Medical
DX: I50.32 Chronic diastolic (congestive) heart failure (principal); I48.19 Other persistent atrial fibrillation; F33.41 Major depressive disorder, recurrent, in partial remission; H91.90 Unspecified hearing loss, unspecified ear; F41.9 Anxiety disorder, unspecified; Z79.01 Long term (current) use of anticoagulants; Z79.899 Other long term (current) drug therapy; Z86.69 Personal history of other diseases of the nervous system and sense organs
CPT/HCPCS: 36415; 80162